=== PATIENT | female | born 1940 | race Caucasian/White ===

== ENCOUNTER 2018-03-02 08:21 | Inpatient (IN) | payer MEDICARE ==
[~2018-03-02] VITALS: Ht 160 cm; Wt 75.0 kg
[2018-03-07] MEDS ORDERED: LISINOPRIL-HCT1 EACH PO (15:22)
[2018-03-07] MEDS ORDERED: MAGNESIUM250 M1 PO (15:23)
[2018-03-07] MEDS ORDERED: PRILOSEC OTC20 MG PO (15:23)
[2018-03-07] MEDS ORDERED: VISION VITAMIN1 EACH PO (15:24)
[2018-03-07] MEDS ORDERED: VIACTIV SOFT C1 EACH PO (15:24)
--- NOTE | 2018-03-16 13:03 | NUR ---
PATIENT ARRIVES TO ROOM 129 FROM PACU AT 1230 ON STRETCHER. PT IS AWAKE, ALERT, AND ORIENTED AT THIS TIME. PATIENT MOVED OVER TO CCU BED WITH 4 PERSON ASSIST. PT HAS ERNST CATHETER IN PLACE DRAINING YELLOW URINE WITH A HIGHLIGHTED TINT TO IT DUE TO DYE USED DURING PROCEDURE. PT HAD A COLPACLOESIS THIS AM WITH DR. BABB. PT'S BLOOD PRESSURE UPON ARRIVAL TO CCU ARE IN THE 80/30s. PATIENT ARRIVES WITH PHENYLEPHRINE INFUSING AT 60 MCG/MIN. ORDER REC'D FROM DR. LIND TO START LEVOPHED AT 6 MCG/MIN WHICH WAS STARTED AT 1240. AT 1247, BP NOTED TO BE 129/57 (75) AND PHENYLEPHRIN TITRATED DOWN TO 50 MCG/MIN. PHENYLEPHRINE AGAIN TITRATED DOWN TO 30 MCG/MIN AT 1253. . HEART RATE IS IN A SINUS RHYTHM 80-90s WITH SOME PVCs AND PACs NOTED AT TIMES. PT HAS SOME VAGINAL BLEEDING NOTED AND A PERIPAD PLACED. PICC NURSE IN ROOM AT THIS TIME AND EVALUATING PATIENT FOR POTENTIAL PICC LINE PLACEMENT. PT REMAINS AWAKE, ALERT AND CONVERSIVE. CONTINUE TO MONITOR.
--- NOTE | 2018-03-16 13:57 | NUR ---
LEVOPHED TURNED UP TO 15 MCG/MIN AT THIS TIME. LAST BP 115/41 (58). ERNST UROMETER CHANGED OUT. URINE GOAL IS 40 ML/HR. PT AWAKE, CONVERSIVE AND VERY SWEET.
--- NOTE | 2018-03-16 14:16 | NUR ---
PHENYLEPHRINE TURNED OFF AT 1407. BP AT 1405 WAS 138/67 (80) AND BP AT 1415 WAS 127/67 (80). WILL START TO TITRATE DOWN THE LEVOPHED AT PATIENT TOLERATES. PT ABLE TO TAKE A PILL WITHOUT DIFFICULTY WITH SIP OF WATER. CALL LIGHT WITHIN REACH.
--- NOTE | 2018-03-16 14:48 | NUR ---
DR. LIND UPDATED ON PT'S BLOOD PRESSURES AND URINE OUTPUT. ORDER REC'D TO GIVE 500 ML LR BOLUS AT THIS TIME. LR BOLUS STARTED IN RIGHT AC IV SITE. ZERO URINE OUTPUT NOTED IN NEW ERNST DRAINAGE BAG. CONTINUE TO MONITOR.
--- NOTE | 2018-03-16 15:03 | NUR ---
LEVOPHED TURNED DOWN TO 12 MCG/MIN AT THIS TIME. PT HAD ZERO URINE OUTPUT FOR 1500. DR. LIND AWARE. PT STATES SHE FEELS LIKE OF HOT AND HER HANDS AND FOREARMS ARE NOTED TO BE COOL AND CLAMMY. CONTINUE TO MONITOR. ORAL TEMP 97.6 CURRENTLY.
--- NOTE | 2018-03-16 15:37 | NUR ---
LEVOPHED TURNED DOWN TO 10 MCG/MIN AT THIS TIME. LAST BP 122/51 (68). URINE OUTPUT REMAINS ZERO AT THIS TIME. PT DENIES WANTING ANY CLEAR LIQUIDS AT THIS TIME.
--- NOTE | 2018-03-16 15:57 | NUR ---
03/16/18 1557 [place],Anna 0940 PT ARRIVED SITTING IN HIGH FOWLERS WITH 8L VIA MASK IN PLACE. RESP EVEN AND UNLABORED. SMALL AMOUNT OF AUDIBLE CRACKLES NOTED. RN ENCOURAGED PT TO DEEP BREATH AND COUGH. PT HAS GLOSSY EYES AND IS UNABLE TO FOLLOW COMMANDS. O2 SAT MONITOR READING 81% WITH NOT A GOOD WAVE FORM. RN AJUSTING O2 FINGER MONITOR FOR BETTER READING. PT CAP REFILL LESS THEN 2 SECONDS AND WARM AND PINK EXTREMITIES. PT O2 SAT SLOWLY INCREASING. 0942 NASEL AIRWAY REMOVED, PT REACHING UP TO NOSE TO PULL AIRWAY AND SCRATCH NOSE, PT AROUSING. O2 PLACED ON EAR, 96% ON 8L VIA MASK. 0949 BREATHING TREATMENT AT 10L STARTED PER MARKETING SERVICES COORDINATOR. MD ORDERED BLOOS CULTURES AND ABX AND LATIC ACID. 0950 X-RAY AT BEDSIDE PER MARKETING SERVICES COORDINATOR. RN AUSCULTATED LUNG SOUNDS, CRACKLES IN LEFT LOWER BASE NOTED. [id number] BP ON MONITOR SHOWS 42/23 MAP 27. RN AJUSTED BP CUFF TO RETAKE BP. PT MORE AWAKE AND ENCOURAGED TO COUGH AND PT HAD WEAK COUGH. PT DENIES SOB AND DIZZINESS. BP RANGING FROM 46/19 TO 64/45. MANUAL BP TAKEN BY RN, 78/50. MD AT BEDSIDE. 1003 MARKETING SERVICES COORDINATOR AT BEDSIDE. EPHEDRINE 25 MG IV PUSH GIVEN BY MARKETING SERVICES COORDINATOR TO SUPPORT BP. 1006 BP INCREASED TO 92/61 MAP 68. PT AWAKE DENIES PAIN AND NAUSEA. 1020 BP TRENDING DOWN, MARKETING SERVICES COORDINATOR RETURNED TO ROOM AND STARTED PHENYLEPHRINE DRIP. TITRATE MAP BETWEEN 55-65 PER MARKETING SERVICES COORDINATOR ORDERS. PT ALERT AND ORIENTED X3. 1025 BP INCREASED RANGING 120-150 SBP MAP 75-99, PHENYLEPHRINE DECREASED. 1037 O2 DECREASED TO 8L VIA OXYMASK, O2 SAT 97%. PT CONTINUED TO ENCOURAGED TO DEEP BREATH AND COUGH. 1040 SECOND RN AT BEDSIDE TO START SECOND IV. 1047 LAB AT BEDSIDE. 1048 O2 DECREASED TO 6L, O2 SAT 99%. PT EDUCATED ABOUT DEEP BREATHING AND COUGHING, AND REASON FOR OXYMASK. 1055 PHENYLEPHRINE GOING AT 25 MCG/MIN WITH LR. 1100 PT CONTINUES TO DENIES SOB AND DIZZINESS. PT ALERT AND ORIENTED X3. SKIN PINK WITH CAP REFILL LESS THEN 2 SECONDS. 1104 PHENYLEPHRINE TITRATED UP TO 45 MCG/MIN DUE TO DECREASING BP. 1112 BP INCREASED TO 95/44 MAP 56. RN CONTINUES TO MONITOR BP CLOSELY WITH BP RUNNING EVERY 3 MINS AND PHENYLEPHRINE TITRATED ACCORDINGLY BETWEEN 25-45 MCG/MIN. 1120 O2 REMOVED. O2 SAT 100%. ACCORDING TO MD PT CAN NOT TOLERATE HOB LAYING FLAT DUE TO REFLUX. AT BEDSIDE. 1130 NC PLACED ON PT AT 2L DUE TO DECREASING O2 SAT, 90%. O2 INCREASED TO 93%. 1140 MD AND MARKETING SERVICES COORDINATOR AT BEDSIDE, MD ORDERED PT BE TRANSFERED TO CCU AND CONSULT TO MD LIND PLACED. 1200 MD LIND AT BEDSIDE TO ASSESS PT. ORDERS GIVEN TO BE FOLLOW IN CCU. JUAN RAMON BP 70/50 PER DIOGO, PHENYLEPHRINE INCREASED TO 60 MCG/MIN PER . NEW ORDER TO START NOREPI IN CCU. 1220 PT READY FOR TRANSFER AND CCU READY TO RECEIVE PT. IV FLUIDS INCREASED TO AND HOB DECREASED TO 20 DEGREES WITH PT REPORTING NO REFLUX AT THIS TIME. PT DENIES NAUSEA AND PAIN. PT REPORTS FEELING BACK TO BASELINE WITH NO DIZZINESS OR SOB. 1230 REPORT TO CCU RN. SEE SCAN IN VITAL SIGNS FOR ALL RECORDED VITAL SIGNS.
--- NOTE | 2018-03-16 16:27 | NUR ---
DR. LIND IN UNIT TO CHECK ON PATIENT AGAIN. UPDATED ON MOST RECENT BLOOD PRESSURES AND TITRATION LEVEL OF LEVOPHED. LEVOPHED WAS INFUSING AT 10 MCG/MIN FOR AROUND A HALF HOUR, BUT 1600 BP 99/37. LEVOPHED WAS THEN TURNED UP TO 12 MCG/MIN AT 1615, AND AGAIN TURNED UP TO 14 MCG/MIN AT 1617. PT'S SP02 IS 95% ON 2 L AND THIS WAS TURNED DOWN TO 1 L AT THIS TIME. PT DENIES ANY SHORTNESS OF BREATH. PT DOES NOTE AT THIS TIME TO DR. LIND AND RN THAT SHE HAS BEEN HAVING NAUSEA WITH VOMITING SINCE WEDNESDAY, WITH REFLUX SYMPTOMS THAT EVEN OCCUR WHEN SHE IS SLEEPING AND SHE HAS NOTED HERSELF TO BE AWOKEN BY COUGHING ON THEM. PATIENT ALSO NOTES THAT SHE HAS HAD A LARGER, DISTENDED FEELING FIRM ABDOMEN THAT HAS BEEN PERSISTENT SINCE AROUND NOV/DEC OF THIS YEAR. ABDOMINAL XRAY TO BE OBTAINED.
--- NOTE | 2018-03-16 17:08 | NUR ---
ABD XRAY DONE. LABS DRAWN FROM RIGHT AC SITE WHICH DRAWS BLOOD BACK WELL. DR. BABB BACK IN ROOM TO CHECK UP ON PATIENT AT THIS TIME. PATIENT MADE 15 ML OF URINE FROM [id number].
--- NOTE | 2018-03-16 18:37 | NUR ---
PATIENT ADMITTED FROM PACU AROUND 1230 AFTER COLPACLEISIS TODAY. PT ARRIVED TO CCU ON PHENYLEPHRINE WHICH IS NOW OFF. PT NOW ON LEVOPHED WITH TITRATION TO KEEP MAP >65 ML/HR, CURRENLTY INFUSING AT 14 MCG/MIN. PT ALERT, ORIENTED AND TOLERATING LOW BPs WELL. MONITOR U/O - GOAL OF 40 ML/HR. PT HAS BEEN AVERAGING 15 ML/HR. IV ABX INCLUDE AZITHROMYCIN AND UNASYN. PT NOTED TO ALSO HAVE LEFT SIDED PNEUMONIA, LIKELY DUE TO GERD REFLUX AND VOMITING SINCE WEDNESDAY. PICC LINE IN LEFT UPPER ARM. IVF AT 125 ML/HR.
--- NOTE | 2018-03-16 20:00 | NUR ---
RECEIVED REPORT AT 1915. PT IS IN BED. VASOPRESSOR DRIP AT 14MCG/MIN. BP 125/55 (69), HR 70-80'S. THE BLADDER SCANNER FROM ER WAS OBTAINED AND SHOWED A URINE VOLUME OF 938ML. PT HAS BEEN RE-POSITIONED TO LEFT, RIGHT AND UP WITH NO INCREASE IN URINE OUTPUT. MD LIND WAS CALLED AND A VOICEMAIL WAS LEFT. LOBES ARE CLEAR BUT DIMINISHED, ABD SOUNDS ARE HYPOACTIVE AND DISTANT, ABD IS FIRM TO TOUCH BUT NOT TENDER. PT DENIES URGENCY TO URINATE. PT DENIES PAIN OVERALL. WILL WAIT ON FURTHER INSTRUCTIONS FROM MD LIND.
--- NOTE | 2018-03-16 20:47 | NUR ---
MD LIND WANTED FOR US TO CALL MD BABB. MD BABB SAID TO IRRIGATE ERNST WITH 50-100ML STERIL WATER. I WILL CALL BACK IF THERE IS NO INCREASE IN OUTPUT.
--- NOTE | 2018-03-16 21:00 | NUR ---
VASOPRESSOR REDUCED TO 12MCG/MIN. PT IS TOLERATING WELL.
--- NOTE | 2018-03-16 21:04 | NUR ---
90ML OF STERIL SALINE WAS IRRIGATED THROUGH THE ERNST. 148ML CAME OUT. ACTUAL URINE OUTPUT THEREFORE WAS 58ML FOR 1 HR. WILL ZACK BABB AGAIN.
--- NOTE | 2018-03-16 21:10 | NUR ---
RECEIVED ORDER FROM MD BABB FOR A PELVIC US. US TEAM HAS BEEN CALLED.
--- NOTE | 2018-03-16 22:00 | NUR ---
MD BABB IS COMMING IN TO ASSESS PT. ERNST OUTPUT FOR 2100-200 IS 17ML. IV [id number] IS TURNED OFF AT THIS TIME.
--- NOTE | 2018-03-17 | NUR ---
PT HAD AN ABD/PELVIC CT W/O. AT THIS TIME PT IS RECEIVING THE SAME CT BUT WITH CONTRAST VIA IV. URINE OUTPUT HAS REMAINED VERY LOW. ABD IS STILL DISTENDED AND FIRM TO TOUCH. ABD SOUNDS ARE STILL VERY DISTANT. LOWER LOBES HAVE CRACKLES AT THIS TIME. PT IS ON 2L O2 NC. VASOPRESSOR IS STILL AT 12MCG/MIN. RADIAL AND PEDIS PULSES ARE +2, HANDS AND FEET ARE WARM TO TOUCH. V/S OVERALL ARE WDL. PT DENIES PAIN.
--- NOTE | 2018-03-17 02:00 | NUR ---
PT IS RESTING AT THIS TIME. VASOPRESSOR AT 15MCG/MIN, BP'S AND MAP ARE HOLDING. NO CHANGES AT THIS TIME.
--- NOTE | 2018-03-17 02:40 | NUR ---
AT THIS TIME MD BABB WANTS MD LIND TO TAKE OVER CARE OF THIS PT AGAIN IN REGARDS TO HER V/S AND URINE OUTPUT. MD LIND WAS CALLED. RECEIVED ORDER TO LOWER IV FLUIDS TO 75ML/HR, AND TO WATCH URINE OUTPUT FOR 3HRS AND CALL HIM WITH AN UPDATE. LEVOPHET AT 15MCG/MIN.
--- NOTE | 2018-03-17 04:00 | NUR ---
UPPER LOBES ARE CLEAR, LOWER LOBES HAVE FINE CRACKLES. ABD IS STILL DISTENDED AND IS FIRM. PT STILL DENIES PAIN. BRACHIAL AND PEDIS PULSES ARE +2, CAP REFILL IS <3SEC, FINGERS AND TOES ARE WARM TO TOUCH. LEVOPHED IS STILL AT 15MCG/MIN. V/S OVERALL ARE WDL. NO NEW CONCERNS AT THIS TIME.
--- NOTE | 2018-03-17 06:00 | NUR ---
AT START OF SHIFT PT HAD ISSUES WITH URINE OUTPUT. ERNST WAS IN PLACE BUT BLADDER SCANNER SHOWED 938ML IN BLADDER. ERNST WAS CHANGED X2 BY RN'S AND X1 BY MD BABB. PELVIC US WAS DONE, ABD/PELVIC CT'S WITH AND WITHOUT CONTRAST WAS DONE. CT SHOWED A COMPRESSED BLADDER AND ASCITES. ABD OF PT HAS BEEN AND STILL IS DISTENDED AND FIRM TO TOUCH. ABD SOUND ARE AND HAVE BEEN HYPOACTIVE AND DISTANT IS SOUND. PT DENIES PAIN AND FLATUS ALL SHIFT. URINE OUTPUT HAS BEEN POOR UNTIL EARLIER THIS MORNING. MD BABB AND DIOGO ARE AWARE. LOWER LOBES HAVE CRACKLES PRESENT, UPPER LOBES ARE CLEAR. PT IS STILL ON LEVOPHET AT 17MCG/MIN AT THIS TIME. RADIAL AND PEDIS PULSES ARE +2, HANDS AND FEET ARE AT THIS TIME LUKEWARM TO TOUCH. PICC LINE IS INTACT. V/S AT THIS TIME ARE WDL.
--- NOTE | 2018-03-17 08:08 | NUR ---
PT IS RESTING IN BED SAFELY WITH CALL LIGHT IN REACH. PT ASKED TO ORDER BREAKFAST WILL CALL DOWN HER ORDER TO THE KITCHEN. 0800 VITALS WERE TAKEN AND CHARTED.
--- NOTE | 2018-03-17 08:30 | NUR ---
DR. BABB IN ROOM TO EVALUATE PATIENT. PT NOW EATING BREAKFAST.
--- NOTE | 2018-03-17 08:36 | NUR ---
PATIENT AWAKE, SITTING UP IN BED EATING BREAKFAST. PT'S MOST RECENT BP 98/54 (65). LEVOPHED CONTINUES AT 17 MCG/MIN AT THIS TIME. IVF AT 75 ML/HR. PT TO RECEIVE IV ANTIBIOTICS THIS AM.
--- NOTE | 2018-03-17 09:01 | NUR ---
LEVOPHED TURNED DOWN TO 15 MCG/MIN AT THIS TIME. DR. LIND IN ROOM EVALUATING PATIENT. CONTINUE TO MONITOR.
--- NOTE | 2018-03-17 09:02 | NUR ---
IVF TURNED DOWN TO [address] AT THIS TIME PER [address] LIND'S ORDER. PATIENT TO GET UP TO CHAIR TODAY AND MOVE AROUND MORE. URINE OUTPUT THIS HOUR WAS 60 ML/HR. CONTINUE TO MONITOR CLOSELY.
--- NOTE | 2018-03-17 09:50 | NUR ---
TITRATED LEVOPHED DRIP TO 16 MCG PER LOW MAP OF 57. PT SITTING UP IN BED AWAKE AND ALERT, DENIES ANY NEEDS AT THIS TIME.
--- NOTE | 2018-03-17 10:20 | NUR ---
TURNED PT 02 UP TO 3L DUE TO DESAT ON 2L DOWN TO MID 80% TITRATED LEVOPHED DRIP UP TO 17 MCG/MIN DUE TO LOW MAP OF 55, BP IS 102/38
--- NOTE | 2018-03-17 10:59 | NUR ---
PT WAS GIVEN A COMPLETE BED BATH, CATH/BRYAN CARE, ORAL CARE, LINENS CHANGED, AND HAIR BRUSHED. PT WAS TRANSFERED VIA TWO PEOPLE TO BEDSIDE CHAIR AND IS NOW SITTING UP SAFELY WITH FEET ELEVATED AND CALL LIGHT IN REACH. PT DID NOT NEED ANYTHING ELSE AT THE MOMENT
--- NOTE | 2018-03-17 11:05 | NUR ---
LEVOPHED REMAINS INFUSING AT 17 MCG/MIN AT THIS TIME. PT SITTING IN CHAIR, VISITING WITH HER . LAST BP 112/52 (66) AND HR IN THE 95-105 RANGE. PT NOW ON 3 L OXYGEN.
--- NOTE | 2018-03-17 11:59 | NUR ---
PATIENT'S LUNCH ORDERED AND ALSO A CAREGIVER TRAY FOR HER . PT REMAINS SITTING IN CHAIR AND TOLERATING THIS WELL. PT USING IS. LEVOPHED REMAINS AT 17 MCG/MIN AT THIS TIME. CONTINUE TO MONITOR. ASSESSMENT COMPLETE AT THIS TIME.
--- NOTE | 2018-03-17 14:12 | NUR ---
PT SITTING IN CHAIR, AT HER SIDE. BOTH HAD JUST FINISHED LUNCH. PT IS ALERT AND ORIENTED, VERY PLEASANT. RATHER OUTSPOKEN AND OPINIONATED ABOUT MED. PROFESSION. PT THANKED ME FOR COMING IN, REQUESTED PRAYER. WILL CONTINUE TO FOLLOW NEEDED
--- NOTE | 2018-03-17 14:27 | NUR ---
LEVOPHED TURNED DOWN TO 14 MCG/MIN AT 1400.
[2018-03-17] MEDS ORDERED: MURO-12815 M1 OU (15:41)
[2018-03-17] MEDS ORDERED: MULTIVITAMINS1 EAC8 PO (15:42)
--- NOTE | 2018-03-17 16:16 | NUR ---
LEVOPHED TURNED DOWN TO 10 MCG/MIN AT THIS TIME. LAST BP 115/54(68). PATIENT UP TO AMBULATE AND ABLE TO WALK IN CCU H ALLWAY DOWN AND BACK TO ROOM. PT TOLERATED FAIR, BUT DESATURATES WITHOUT OXYGEN DOWN TO 79%. PT BACK ON 4 L NC AT THIS TIME AND NOW SP02 IS 97%. WILL CONTINUE TO WORK ON USING IS.
--- NOTE | 2018-03-17 17:47 | NUR ---
DR. BABB IN TO SEE PATIENT AGAIN AT THIS TIME. PT REMAINS IN BED AND WATCHING TV. HELPED PATIENT TO ORDER DINNER AT THIS TIME, HOWEVER SHE STATES SHE IS NOT VERY HUNGRY. CA 19-9 ANTIGEN AND CA 125 LABS STILL PENDING AT THIS TIME AND WILL BE CALLED TO DR. BABB WHEN RECEIVED.
--- NOTE | 2018-03-17 18:08 | NUR ---
OXYGEN TURNED DOWN TO 2 L AT THIS TIME SP02 IS NOTED TO BE 99-100 ON 3L OF O2. PT RESTING IN BED AT THIS TIME AND WAITIN FOR HER DINNER. CONTINUE TO MONITOR. URINE OUTPUT FOR THE LAST 2 HOURS WAS 70 ML.
--- NOTE | 2018-03-17 18:46 | NUR ---
DR. LIND UPDATED ON MOST RECENT URINE OUTPUTS. ORDER REC'D TO MAINTAIN BLOOD PRESSURE MAP >65 AND ALSO TO MAINTAIN URINE OUTPUT OF 40 ML/HR. LEVOPHED TURNED UP TO 12 MCG/MIN AT THIS TIME. PT SITTING UP EATING DINNER. DR. BABB UPDATED ON CA 19-9 AND CA 125 LAB VALUES WELL.
--- NOTE | 2018-03-17 19:20 | NUR ---
SHIFT REPORT RECEIVED FROM LUIS ANTONIO BUSH. PT CURRENTLY ON 2L O2 VIA NC. LEVOPHED INFUSING AT 12MCG/MIN.
--- NOTE | 2018-03-17 20:41 | NUR ---
ASSESSMENT COMPLETED. LEVOPHED TITRATED TO 13MCG/MIN FOR MAP:59. PT REPORTS 9/10 PAIN IN ABDOMEN, 25MCG IV FENTANYL GIVEN. ALERT/ORIENTED. LUNGS CLEAR IN UPPER, CRACKLES NOTED IN BASES, 2L O2 VIA NC IN PLACE. HR REGULAR. BOWEL TONES HYPOACTIVE, ABDOMEN TENDER, FIRM, MODERATELY DISTENDED. ERNST PATENT, 23ML EMPTIED AT 2030, WILL CONTINUE TO MONITOR CLOSELY. SKIN APPEARS GROSSLY INTACT. PT PROVIDED WITH HEAT PACK FOR HER NECK PER REQUEST. PT DENIES FURTHER NEEDS AT THIS TIME.
--- NOTE | 2018-03-17 20:59 | NUR ---
TITRATED OXYGEN TO 3L VIA NC FOR SATS 88-90%. BOOSTED PT UP IN BED. EMPTIED 23ML FROM ERNST SINCE 2029, WILL CONTINUE TO MONITOR ON THE HOUR.
--- NOTE | 2018-03-17 21:24 | NUR ---
UNASYN INFUSION COMPLETED, RIGHT WRIST IV SALINE LOCKED AT THIS TIME. LEVOPHED CONTINUES AT 13MCG/MIN. PT DENIES NEEDS, WILL CONTINUE TO MONITOR.
--- NOTE | 2018-03-17 22:00 | NUR ---
PT CONTINUES TO REPORT 9/10 ABDOMINAL PAIN, 25MCG IV FENTANYL ADMINISTERED. PT ALSO REQUESTS SLEEP AID, SONATA ADMINISTERED.
--- NOTE | 2018-03-17 22:11 | NUR ---
DR. LIND NOTIFIED OF PT'S LOW UO, ORDERS RECEIVED TO BOLUS 250ML NS OVER 1 HR AND SEE IF UO RESPONDS AND IF NEEDED INCREASE IVF TO 100ML/HR. BOLUS STARTED. PT'S LAST BP: 117/73 (83), TITRATED LEVOPHED TO 12MCG/MIN, WILL CONTINUE TO MONITOR CLOSELY.
--- NOTE | 2018-03-17 22:34 | NUR ---
TITRATED LEVOPHED TO 11MCG/MIN FOR MAP:74.
--- NOTE | 2018-03-17 22:47 | NUR ---
TITRATED OXYGENT TO 4L O2 VIA NC FOR SPO2:87%, SATS INCREASED TO 90% AFTER A COUPLE DEEP BREATHS. PT BOOSTED UP IN BED, DENIES FURTHER REQUESTS.
--- NOTE | 2018-03-17 23:00 | NUR ---
LEVOPHED TITRATED TO 10MCG/MIN FOR MAP:77. UO WAS 50ML THIS HOUR. PT RESPONDED WELL TO FLUIDS, INCREASED IVF RATE TO 100ML/HR. PT CONTINUES TO RATE ABDOMINAL PAIN 9/10, PRN TYLENOL AND 25MCG FENTANYL GIVEN AT THIS TIME. WILL CONTINUE TO MONITOR. CLOSELY.
--- NOTE | 2018-03-17 23:00 | NUR ---
LEVOPHED TITRATED TO 10MCG/MIN FOR MAP:77. UO WAS 50ML THIS HOUR. PT RESPONDED WELL TO FLUIDS, INCREASED IVF RATE TO 100ML/HR. PT CONTINUES TO RATE ABDOMINAL PAIN 9/10, PRN TYLENOL AND 25MCG FENTANYL GIVEN AT THIS TIME. WILL CONTINUE TO MONITOR CLOSELY.
--- NOTE | 2018-03-18 00:10 | NUR ---
LEVOPHED TITRATED TO 8MCG/MIN FOR MAP:80. UO THIS HOUR WAS ONLY 20, IVF CONTINUE AT 100ML/HR, WILL CONTINUE TO MONITOR CLOSELY. PT SLEEPING, DOES NOT APPEAR TO BE IN ANY DISTRESS. RR:23, 4L O2 REMAINS IN PLACE. WILL ALLOW FOR REST AND CONTINUE TO MONITOR.
--- NOTE | 2018-03-18 00:44 | NUR ---
TITRATED LEVOPHED TO 7MCG/MIN FOR MAP OF 72.
--- NOTE | 2018-03-18 01:00 | NUR ---
LEVOPHED TITRATED TO 8MCG/MIN FOR MAP:61. URINE OUTPUT 25ML THIS HOUR.
--- NOTE | 2018-03-18 01:20 | NUR ---
CALLED AND SPOKE TO DR. LIND REGARDING PT'S LOW URINE OUTPUT. RECEIVED ORDERS TO DISCONTINUE CURRENT IVF AND START NORMAL SALINE @125ML/HR CONTINUOUS WELL A ONE TIME 500ML NS BOLUS OVER ONE HOUR. PT CONTINUES TO REPORT 9/10 ABDOMINAL PAIN, 25MCG IV FENTANYL GIVEN. PT REPORTS THAT SHE HAS PASSED FLATUS. NO REQUESTS AT THIS TIME, WILL CONTINUE TO MONITOR.
--- NOTE | 2018-03-18 02:03 | NUR ---
TITRATED LEVOPHED TO 7MCG/MIN FOR MAP OF 72. URINE OUTPUT WAS 15ML THIS HOUR. WILL CONTINUE TO CLOSELY MONITOR.
--- NOTE | 2018-03-18 03:06 | NUR ---
LEVOPHED CONTINUES AT 7MCG/MIN, LAST MAP:67. UO THIS HOUR WAS 33ML.
--- NOTE | 2018-03-18 04:00 | NUR ---
LEVOPHED TITRATED TO 6MCG/MIN FOR MAP OF 82. URINE OUTPUT WAS 25ML THIS HOUR. PT REPORTS 10/10 ABDOMINAL PAIN, 25MCG IV FENTANYL GIVEN. ASSESSMENT COMPLETED. LUNGS SOUND CLEAR IN UPPER LOBES AND CRACKLES NOTED IN BASES, 4L O2 VIA NC REMAINS IN PLACE. NO OTHER CHANGES FROM PREVIOUS ASSESSMENTS. PT DENIES NEEDS, WILL CONTINUE TO MONITOR.
--- NOTE | 2018-03-18 05:10 | NUR ---
LEVOPHED TITRATED TO 5MCG/MIN FOR MAP OF 70. URINE OUTPUT 33ML THIS HOUR. PT APPEARS TO BE SLEEPING, NO APPARENT DISTRESS. RR:25, SPO2:96% ON 4L.
--- NOTE | 2018-03-18 06:00 | NUR ---
LEVOPHED TITRATED TO 4MCG/HR FOR MAP OF 78. URINE OUTPUT 25ML THIS HOUR.
--- NOTE | 2018-03-18 07:03 | NUR ---
LEVOPHED TITRATED TO 5MCG/MIN FOR MAP OF 61. URINE OUTPUT WAS 33ML THIS HOUR. CALLED AND UPDATED DR. LIND, NO NEW ORDERS RECEIVED AT THIS TIME.
--- NOTE | 2018-03-18 07:30 | NUR ---
BEDSIDE REPORT RECIEVED. PATIENT IS RESTFUL AT THIS TIME. IVF PATENT, ERNST CATH PATENT.
--- NOTE | 2018-03-18 08:00 | NUR ---
ASSESSMENT DONE. C/O ABD PAIN AND SHOULDER PAIN. HAVING TROUBLE GETTING FULL BREATH. RESP RATE >30. TALKED WITH PATIENT ABOUT PALC OF ARE FOR DAY.
--- NOTE | 2018-03-18 08:15 | NUR ---
FENTANYL 25 MCG IV GIVEN FOR PAIN.
--- NOTE | 2018-03-18 10:00 | NUR ---
DR. LIND HERE TO SEE PATIENT. IVF DECREASED TO 65 ML/HR. LEVOPHED GTT REMAINS AT 4MCG/MIN.
--- NOTE | 2018-03-18 10:22 | NUR ---
FENTANYL 25 MCG IV GIVEN FOR PAIN. IS AT BEDSIDE.
--- NOTE | 2018-03-18 12:00 | NUR ---
UP TO CHAIR WITH ASSIST.
--- NOTE | 2018-03-18 14:00 | NUR ---
DR. LOWERY HERE TO DO PARACENTESIS.
--- NOTE | 2018-03-18 14:45 | NUR ---
TOLERATED PARACENTESIS WELL. TOTAL OF 4000 ML OF PERINEAL FLUID. SPEC SENT TO LAB FOR CYTOLOGY ORDERED.
--- NOTE | 2018-03-18 15:00 | NUR ---
PHOTOGRAPH INSPECTOR HERE TO DO ECHO AT BEDSIDE.
--- NOTE | 2018-03-18 15:35 | NUR ---
ECHO COMPLETE. PATIENT DENEIS NEED FOR PAIN MEDICATION.
--- NOTE | 2018-03-18 16:00 | NUR ---
ASSESSMENT DONE. CONTINUES TO HAVE CRACKLES BILAT. L>R. UP TO BR TO EXPELL SMALL STOOL, THEN TO CHAIR. ADLS COMPLETE. REFUSING DINNER.
--- NOTE | 2018-03-18 17:00 | NUR ---
CONTINUE TO SIT UP IN CHAIR. STATES SHE FEEL ALITTLE BETTER NOW.
--- NOTE | 2018-03-18 17:31 | NUR ---
AMBULATED IN HALLWAY, FROM ROOM 130 TO 128 AND BACK. REMAINS ON LEVOPHED GTT AT 3 MCG/MIN. AMBULATING WITH WALKER AND 4 LITERS O2 PER NC. UPON RETURN TO ROOM IS DYSPNIC. O2 SAT 88. RESP RATE-40. STATES SHE IS VERY TIRED. AFTER APPROX 3 MIN SITTING AT BEDSIDE, SAT TO 94.
--- NOTE | 2018-03-18 18:00 | NUR ---
LEVOPHED GTT TO OFF. BP-124/55. WILL MONITOR BP Q 15 MIN FOR NOW. C/O PAIN INBETWEEN SHOULDERS BLADES, LIDOCAINE PATCH APPLIED.
--- NOTE | 2018-03-18 18:36 | NUR ---
FENTANYL 25 MCG IV GIVEN FOR PAIN.
--- NOTE | 2018-03-18 19:02 | CONS ---
[facility] [address], [place] [address] Signed DATE OF CONSULTATION: 03/18/2018 CONSULTING PHYSICIAN: Alisa Lowery MD. REQUESTING PHYSICIAN: Raffaele Krishna MD PROBLEM: Enigmatic ascites, need for paracentesis. HISTORY OF PRESENT ILLNESS: This 77-year-old white woman was admitted to the intensive care unit postoperatively after operation performed on March 16, 2018. She had undergone a colpocleisis and cystoscopy by Dr. Krishna with assistance of Dr. Fletcher and Dr. Ziegler. A spinal anesthetic was used. Postoperatively, she was noted to have hypotension and oliguria. An ultrasound performed showed a fair amount of fluid within the abdomen, which initially was thought to be a distended bladder, but subsequently considered actually to be intraperitoneal ascites. The patient required pressor support for blood pressure support and although she is improved in that regard, remains with rather significant ascites at this time, which would be considered new. Consultation was undertaken with Dr. Vargas for medical comanagement and review of the patient's course during operation showed hypotension. During the course of operation, administration of approximately 3-4 L of crystalloid solution as well as ephedrine. A postprocedure chest x-ray showed findings consistent with left lower lobe pneumonia. The patient had a cough leading up to the time of operation though was [id number] carmona without associated production of sputum. The patient has been weaned from her norepinephrine drip largely now only at 3 mcg. She has been treated with broad-spectrum antibiotics. Her white count today is 24.3 with hematocrit of 32.6, and platelet count of 367,000. Her band forms are 10%. Chem profile shows a potassium of 3.7. Sodium 133, creatinine 0.53. Magnesium is 1.7. Albumin is 2.5. The CA-19-9 and CA-125 is pending. The patient underwent CT scan to assess that there was no evidence of bladder injury or urinary abnormality otherwise. The CT scan did not demonstrate ureteral injury, bladder injury or renal injury, though to my knowledge, no retrograde cystogram has been undertaken. The renal retroperitoneal ultrasound was performed on 03/16/2018, showing Electronically Signed By: ALISA LOWERY MD 03/18/18 1902 PATIENT NAME: SAQIB BHARDWAJ CONSULTATION DATE OF : 40 REPORT #: [id number] PHYSICIAN: ALISA LOWERY MD PCP: LUIZA ORTEGA Radha-Abhay REPORT IS CONFIDENTIAL AND NOT TO BE RELEASED WITHOUT AUTHORIZATION [facility] [address], [place] [address] Signed ascites and collapse of bladder around the Madison catheter bulb. There is no evidence of hydronephrosis on ultrasound or on CT scan. There has been concern she may have underlying carcinomatosis, specifically a primary peritoneal carcinoma or other similar such abnormality accounting for the ascites as there was apparent omental caking on the CT scan in addition to the massive ascites that has been noted. PHYSICAL EXAMINATION: GENERAL: This is a pleasant white woman who does not look systemically toxic at this time. She is accompanied by her . HEENT: Trachea is midline. She has no tachypnea. CHEST: Shows normal respiratory excursion at this time. HEART: Regular. ABDOMEN: Does show considerable ascites. I detect no sign of hernia at the umbilicus or obvious scar, though she is said to have had hysterectomy in the past. EXTREMITIES: Do not show edema. LABORATORY DATA: Labs studies were reviewed showing a hematocrit of 32.6, platelets of 367,000. I see no coag studies particularly. Electrolytes are normal as previously described. Creatinine 0.53. Urinalysis was normal on March 16. ASSESSMENT: There is a particular situation for ascites to develop so abruptly following operation. There has not thought to be any bladder rupture or other similar issue. However, the peritoneal fluid has been considered appropriate to collect for symptom control, but also for assessment particularly for malignancy. The risks of bleeding, infection, and so forth related to paracentesis for diagnosis and therapeutic intent have been reviewed with the patient and her . They understand and agree. Understanding the risks of bleeding, infection, bowel injury, and other unforeseen complications. Understand this, they wished to proceed. PLAN: We will make plans to do paracentesis at this time for diagnosis for treatment intention. MD KRZYSZTOF Vera/MARICRUZ /[id number] Electronically Signed By: ALISA LOWERY MD 03/18/18 1902 PATIENT NAME: SAQIB BHARDWAJ CONSULTATION DATE OF : 40 REPORT #: [id number] PHYSICIAN: ALISA LOWERY MD PCP: LUIZA ORTEGA REPORT IS CONFIDENTIAL AND NOT TO BE RELEASED WITHOUT AUTHORIZATION [address] [address] Signed cc: MD Waldo Chen MD Copies: RAFFAELE KRISHNA MD, LOHITH VEERAPPA MD ~ Electronically Signed By: ALISA LOWERY MD 03/18/18 1902 PATIENT NAME: SAQIB BHARDWAJ CONSULTATION DATE OF : 40 REPORT #: [id number] PHYSICIAN: ALISA LOWERY MD PCP: LUIZA ORTEGA REPORT IS CONFIDENTIAL AND NOT TO BE RELEASED WITHOUT AUTHORIZATION
--- NOTE | 2018-03-18 19:02 | NUR ---
MAP REMAINS >70 LEVOPHED REMAINS OFF.
--- NOTE | 2018-03-18 19:15 | NUR ---
SHIFT REPORT RECEIVED FROM LUIS ANTONIO SHANNON. PT CURRENTLY RESTING IN BED WITH 4L O2 VIA NC IN PLACE. SCD'S PLACED ON PT. SUJATA PATENT. IVF INFUSING WNL INTO PICC. PT DENIES NEEDS AT THIS TIME.
--- NOTE | 2018-03-18 20:30 | NUR ---
ASSESSMENT COMPLETED. ALERT/ORIENTED. REPORTS 8/10 ABDOMINAL PAIN, PRN TYLENOL AND FENTANYL ADMINISTERED. LUNGS SOUND DIMINISHED THROUGHOUT, 4L O2 VIA NC IN PLACE, R.T. IN TO GIVE BREATHING TREATMENT AND INSTRUCT I.S. HR REGULAR. BOWEL TONES HYPOACTIVE, DENIES NAUSEA. ERNST PATENT. DR. LIND CALLED TO CHECK IN ON PT AND PUT IN ORDERS TO INCREASE IVF RATE TO 85ML/HR. PICC PATENT, NO REDNESS/SWELLING AT SITE. PERIPHERAL IV SITES SL, PATENT. SCD'S ON. EDEMA NOTED IN BLE. PT DENIES FURTHER REQUESTS AT THIS TIME, WILL CONTINUE TO CLOSELY MONITOR.
--- NOTE | 2018-03-18 21:55 | NUR ---
PT APPEARS TO BE SLEEPING AT THIS TIME, RR:25, HR:97
--- NOTE | 2018-03-18 22:08 | NUR ---
LEVOPHED DRIP ON AT THIS TIME AT 2MCG/MIN FOR BP: 97/48 (56). IVF CONTINUES TO INFUSE AT 85ML/HR. URINE OUTPUT 47ML THIS HOUR. PT CONTINUES TO SLEEP, DOES NOT APPEA TO BE IN ANY DISTRESS. WILL CONTINUE TO MONITOR CLOSELY.
--- NOTE | 2018-03-18 23:06 | NUR ---
LEVOPHED TITRATED TO 3MCG/MIN FOR MAP OF 61. URINE OUTOUT 15ML THIS HOUR. PT CONTINUES TO SLEEP, NO APPARENT DISTRESS. RR:22, SPO2: 98% ON 4L, HR:88. WILL ALLOW FOR REST AND CONTINUE TO MONITOR.
--- NOTE | 2018-03-19 00:09 | NUR ---
LEVOPHED TIRATED TO 2MCG/MIN FOR MAP OF 70. URINE OUTPUT WAS 13ML THIS HOUR. DR. LIND INFORMED OF PT'S LOW URINE OUTPUT AND UPDATED THAT PT IS BACK ON LEVOPHED. RECEIVED NEW ORDERS TO INCREASE IVF TO 125ML/HR AND THEN TITRATE LEVOPHED TO OFF TOLERATED. PT CONTINUES TO SLEEP, DOES NOT APPEAR TO BE IN ANY DISTRESS. RR:26, SPO2:99% ON 4L, HR:93. RESPIRATIONS ARE EVEN AND UNLABORED. WILL ALLOW FOR REST AND CONTINUE TO MONITOR.
--- NOTE | 2018-03-19 00:30 | NUR ---
LEVOPHED TITRATED TO 1MCG/MIN FOR MAP OF 69. IVF CONTINUES TO INFUSE AT 125ML/HR.
--- NOTE | 2018-03-19 01:00 | NUR ---
LEVOPHED OFF AT THIS TIME FOR MAP OF 83. URINE OUTPUT WAS 30ML FOR THE HOUR. PT REQUESTS TO GET UP, UP TO BSC WITH SBA, PT HAD SOFT, SEMI-LIQUID BM. RETURNED TO BED. SCD'S ON. IVF INFUSING WNL. HEAT PACK PROVIDED FOR NECK DISCOMFORT. PT DENIES NEED FOR PAIN MEDICATION AT THIS TIME. RESPIRATORY ASSESSMENT COMPLETED, LUNGS REMAIN DIM, CRACKLES NOTED IN BASES AND IN LEFT UPPER LOBE, 4L O2 REMAINS IN PLACE. CALL LIGHT IS WITHIN REACH, PT DENIES FURTHER REQUESTS.
--- NOTE | 2018-03-19 02:03 | NUR ---
LEVOPHED REMAINS OFF, MAP: 66. URINE OUTPUT 5ML THIS HOUR. PT REMAINS ASLEEP, NO APPARENT DISTRESS. WILL CONTINUE TO CLOSELY MONITOR.
--- NOTE | 2018-03-19 03:29 | NUR ---
AT 0300 LEVOPHED REMAINED OFF FOR MAP OF 69. NO URINE OUTPUT FOR THE HOUR, CALLED DR. LIND WHO ASKED THAT I PERFORM A BLADDER SCAN, NO OTHER ORDERS AT THIS TIME. BLADDER SCAN SHOWED 500ML, THOUGH I AM UNABLE TO TELL IF IT IS MEASURING ASCITIES OR BLADDER VOLUME. I FLUSHED ERNST WITH 10ML NORMAL SALINE AND THEN IT BEGAN TO DRAIN 30ML URINE (NOT INCLUDING 10ML FLUSH.) WILL CONTINUE TO MONITOR CLOSELY.
--- NOTE | 2018-03-19 04:05 | NUR ---
LEVOPHED REMAINS OFF, MAP:65. URINE OUTPUT 35ML FOR THE HOUR. ASSESSMENT COMPLETED. 25MCG IV FENTANYL ADMINISTERED FO 07/08 ABDOMINAL PAIN. 4L O2 VIA NC IN PLACE, LUNGS SOUND DIM, CRACKLES NOTED IN LEFT UPPER LOBE. NO OTHER CHANGES FROM PREVIOUS ASSESSMENTS. PT DENIES REQUESTS AT THIS TIME.
--- NOTE | 2018-03-19 05:03 | NUR ---
LEVOPHED REMAINS OFF, MAP: 68. URINE OUTPUT 12ML THIS HOUR. PT SLEEPING, RR:20, RESPIRATIONS EVEN AND UNLABORED. IVF INFUSING WNL. WILL CONTINUE TO MONITOR.
--- NOTE | 2018-03-19 06:00 | NUR ---
LEVOPHED REMAINS OFF, MAP: 80. URINE OUTPUT 40ML FOR THE HOUR. PT UP TO BSC, HAD ANOTHER SEMI-LIQUID SOFT BM. PT DENIES PAIN AT THIS TIME. CALL LIGHT WITHIN REACH. SCD'S ON.
--- NOTE | 2018-03-19 08:38 | NUR ---
PT AWAKE, VITAL SIGNS TAKEN. ASSESSMENT COMPLETED, PT STATES ABD DISCOMFORT "5/10". UP TO TORI CHAIR WITH ONE PERSON ASSIST, PT FARA WELL. STATES NOT BEING HUNGRY BUT DID ORDER SMALL AMT OF REG DIET FOR BREAKFAST. R.T. IN TO ASSESS PT, SATS 99% ON 4L PER NC. PT USED IS UP TO 750 MLS. HUMIDIFIED 02 DECREASED TO 3L PER NC. PT RESTING IN TORI CHAIR WITH LOWER EXTREMITIES ELEVATED.
--- NOTE | 2018-03-19 09:19 | NUR ---
PT NOT ABLE TO EAT MORE THAN A COUPLE BITES OF BREAKFAST. DR. LIND NOTIFIED OF DECREASE IN URINE OUTPUT AND IN TO ASSESS PT. IVF INCREASED TO 150 MLS/HR PER VERBAL ORDER. ENSURE GIVEN TO PT. DR. BABB IN TO TALK WITH PT ALSO. IN ROOM
--- NOTE | 2018-03-19 10:51 | NUR ---
PT UP TO BSC WITH ONE PERSON ASSIST AND HAD SMALL SOFT, NONFORMED BM. TRANSFERRED TO BED AND IS RESTING WITH HOB ELEVATED. PT DRANK APPROX 120 MLS ENSURE. C/O OF SLIGHT NAUSEA AND MEDICATED WITH ZOFRAN 4MG PO.
--- NOTE | 2018-03-19 12:23 | NUR ---
PT AWAKE, VITAL SIGNS TAKEN. PT C/O OF ABD DISCOMFORT "06/07". MEDICATED WITH FENTANYL 25 MCG IV. PT SITTING WITH HOB ELEVATED EATING SMALL AMT OF LUNCH AND ENSURE.
--- NOTE | 2018-03-19 15:00 | NUR ---
SPONGE BATH, ORAL CARE, CATH CARE, UP TO CHAIR. LINEN CHANGE. PT RESTING IN RECLINER, NO C/O AT THIS TIME.
--- NOTE | 2018-03-19 16:20 | NUR ---
VITAL SIGNS COMPLETED AND ASSESSMENT COMPLETED. TPN & LIPIDS STARTED PER DR. HODGE. PT RESTING IN OTRI CHAIR. PT STATES ABD PAIN REMAINS "7/10" BUT DENIES NEED FOR PAIN MED AT THIS TIME.
--- NOTE | 2018-03-19 16:51 | NUR ---
DR. LIND NOTIFIED OF DECREASE IN URINE OUTPUT, NEW ORDERS RECEIVED. PT AMBULATED IN HALLWAY A SHORT DISTANCE AND BACK TO ROOM. HR 122 WHILE AMBULATING. PT RETURNED TO BED AND RESTING WITH HOB ELEVATED, HR NOW 98.
--- NOTE | 2018-03-19 17:55 | NUR ---
PT EATING SMALL AMOUNT OF DINNER. NO C/O AT THIS TIME BUT STATES "NOTHING TASTES GOOD TO ME". PT RESTING IN BED WITH HOB ELEVATED.
--- NOTE | 2018-03-19 18:27 | NUR ---
DR. LIND NOTIFIED OF INCREASE WORK OF BREATHING. RESP 35 AND SHALLOW. ORDERS RECEIVED FOR CHEST XRAY. ALSO ORDER FOR CPAP - R.T. NOTIFIED.
--- NOTE | 2018-03-19 18:36 | NUR ---
PT UP TO BSC WITH ONE PERSON ASSIST - HAD SMALL SOFT BM AND RETURNED TO BED WITH ASSIST. CHEST XRAY COMPLETED.
--- NOTE | 2018-03-19 19:30 | NUR ---
PT SHIFT REPORT RECEIVED FROM DAY SHIFT RN. PT IS RESTING IN BED. PT CALLED AND ASKED FOR CPAP TO COME OFF AT 1900 PER REPORT. PT IS NOW ON 4L NC WITH RR 35-38. MD ORDERED A DOSE OF LASIX. WILL CONTINUE TO CLOSELY MONITOR.
--- NOTE | 2018-03-19 20:00 | NUR ---
PT SHIFT ASSESSMENT COMPLETED. PT IS RESTING IN BED. PT IS ALERT AND ORIENTED. BOWEL TONES ARE HYPOACTIVE. PT HAS HAD 2 BMS TODAY. BREATH SOUNDS ARE CLEAR AND DIMINISHED ON RIGHT AND CRACKLES THROUGHOUT THE L SIDE. RR 34-38. SPO2 98% ON 4L NC. LASIX ADMINISTERED PT URINE IS STARTING TO INCREASE AND DATA WAREHOUSE ADMINISTRATOR IN COLOR. PT RATES PAIN 8/10. WILL GIVE PRN PAIN MEDICATION AND MAKE WARM PACK PER PT REQUEST. UPDATED PT ON PLAN OF CARE FOR THE NIGHT. PT IS AGREEABLE TO PLAN TO TRY AND WEAR CPAP MACHINE AGAIN ABOUT 2100. WILL CONTINUE TO CLOSELY MONITOR.
--- NOTE | 2018-03-19 20:05 | NUR ---
PT SHIFT ASSESSMENT COMPLETED. PT IS RESTING IN BED. PT IS ALERT AND ORIENTED. BOWEL TONES ARE HYPOACTIVE. PT HAS HAD 2 BMS TODAY. BREATH SOUNDS ARE CLEAR AND DIMINISHED ON RIGHT AND CRACKLES THROUGHOUT THE L SIDE. RR 34-38. SPO2 98% ON 4L NC. LASIX ADMINISTERED PT URINE IS STARTING TO INCREASE AND EYEGLASS FRAMES POLISHER IN COLOR. PT RATES PAIN 8/10. WILL GIVE PRN PAIN MEDICATION AND MAKE WARM PACK PER PT REQUEST. UPDATED PT ON PLAN OF CARE FOR THE NIGHT. PT IS AGREEABLE TO PLAN TO TRY AND WEAR CPAP MACHINE AGAIN ABOUT 2100. WILL CONTINUE TO CLOSELY MONITOR.
--- NOTE | 2018-03-19 20:35 | NUR ---
PT REPOSITIONED FOR COMFORT. PT DENIES ANY OTHER NEEDS AT THIS TIME. CALL LIGHT IN HAND. WILL CONTINUE TO CLOSELY MONITOR.
--- NOTE | 2018-03-19 20:40 | NUR ---
PT REPOSITIONED FOR COMFORT. PT DENIES ANY OTHER NEEDS AT THIS TIME. CALL LIGHT IN HAND. WILL CONTINUE TO CLOSELY MONITOR.
--- NOTE | 2018-03-19 22:09 | NUR ---
CPAP REMOVED PER PT REQUEST. 4L O2 VIA NC PLACED ON PT. PT DENIES FURTHER REQUESTS AT THIS TIME.
--- NOTE | 2018-03-20 | NUR ---
PT CALLED TO HAVE CPAP PLACED BACK ON AT THIS TIME. CALLED RT TO ADJUST SETTINGS. WILL CONTINUE TO CLOSELY MONITOR.
--- NOTE | 2018-03-20 00:45 | NUR ---
PT CALLED TO HAVE CPAP ADJUSTED AGAIN. RT IN UNIT AND ADJUSTED SETTINGS. PT REQUESTING SOMETHING FOR PAIN. PT RATING PAIN 7/10. WILL CONTINUE TO CLOSELY MONITOR.
--- NOTE | 2018-03-20 01:51 | NUR ---
CPAP REMOVED PER PT REQUEST. 4L O2 VIA NC PLACED ON PT. NO FURTHER REQUESTS AT THIS TIME.
--- NOTE | 2018-03-20 04:00 | NUR ---
PT REQUESTING TO GO BACK ON CPAP. APPLIED MASK. PT STATES IT FITS GOOD. PT DENIES ANY OTHER NEEDS AT THIS TIME. WILL CONTINUE TO CLOSELY MONITOR.
--- NOTE | 2018-03-20 05:15 | NUR ---
PT CALLED TO HAVE CPAP REMOVED AND HAVE NASAL CANNULA REPLACED AT 4L O2. PT STATES "THAT MASK HURTS MY BELLY". WILL CONTINUE TO CLOSELY MONITOR.
--- NOTE | 2018-03-20 06:24 | NUR ---
ASSISTED PT UP TO BEDSIDE CAMMODE. PT HAD SMALL LOOSE BM. PT TOELRATED GETTING UP WELL AND DID NOT APPEAR SOB AND DENIED SOB. WILL CONTINUE TO CLOSELY MONITOR AT THIS TIME. CALL LIGHT IN HAND.
--- NOTE | 2018-03-20 08:03 | NUR ---
PT AWAKE, ASSISTED TO SITTING POSITION ON EDGE OF BED. PT FARA WELL, STATES "I CAN'T GIVE YOU A NUMBER FOR MY PAIN, I HAVE PAIN ALL THE TIME. THERE IS SO MUCH FLUID ON MY STOMACH". STATES MOST OF HER DISCOMFORT IS IN HER STOMACH. VITAL SIGNS AND ASSESSMENT COMPLETED.
--- NOTE | 2018-03-20 08:39 | NUR ---
PT ATE A FEW BITES OF BREAKFAST, APPROX 10%. STATES "THAT'S ALL I CAN EAT.". PT RETURNED TO BED WITH ONE PERSON ASSIST, HOB ELEVATED.
--- NOTE | 2018-03-20 08:54 | NUR ---
MEDICATED WITH FENTANYL 25 MCG FOR C/O ABD DISCOMFORT. PT RESTING IN BED WITH HOB ELEVATED.
--- NOTE | 2018-03-20 09:17 | NUR ---
DR. LIND IN TO ASSESS PT. PT SLEEPING BUT AWAKENS TO VOICE, RESP 31 AT THIS TIME.
--- NOTE | 2018-03-20 10:15 | NUR ---
DR. BABB IN TO ASSESS PT. ORAL PAIN MEDS ORDERED. PT UP TO BSC WITH ONE PERSON ASSIST, PT HAD SMALL SOFT- SEMI LIQ BROWN STOOL. PT TRANSFERRED TO TORI CHAIR AND RESTING IN RECLINED POSITION.
--- NOTE | 2018-03-20 10:47 | NUR ---
PT C/O OF ABD DISCOMFORT "06/07". MEDICATED WITH NORCO 5/325 PO X1. PT REMAINS UP IN CHAIR VISITING WITH HER .
--- NOTE | 2018-03-20 11:54 | NUR ---
PT NAUSEATED AFTER TAKING A FEW BITES OF HER SANDWICH. MEDICATED WITH ZOFRAN 4MG IV.
--- NOTE | 2018-03-20 13:12 | NUR ---
DR. LOWERY HERE AND CONSENT SIGNED FOR PARACENTISIS. 3 L DRAINED FROM RIGHT ABD AREA. PT FARA WELL. PT STATES FEELING BETTER AFTER PARACENTISIS COMPLETED.
--- NOTE | 2018-03-20 14:16 | NUR ---
I/O'S COMPLETED, PT SLEEPING WITH REU AT 22/MIN. ACCU CHECK 144, 1 UNIT INSULIN GIVEN SUB Q IN RIGHT UPPER ARM.
--- NOTE | 2018-03-20 14:46 | NUR ---
ALBUMIN [address] LOWERY ORDER.
--- NOTE | 2018-03-20 16:24 | NUR ---
ASSESSMENT COMPLETED, PT RESTING WITH EYES CLOSED BUT AWAKENS TO VOICE - FALLS ASLEEP QUICKLY.
--- NOTE | 2018-03-20 17:42 | NUR ---
PT SAT ON EDGE OF BED AND ATE APPROX 10% OF DINNER. TRANSFERRED TO TORI CHAIR WITH ON PERSON ASSIST. NO C/O AT THIS TIME.
--- NOTE | 2018-03-20 18:09 | NUR ---
PICC LINE DRESSING CHANGED USING PICC LINE DRESSING KIT. PT FARA WELL.
--- NOTE | 2018-03-20 19:10 | NUR ---
PT RETURNED TO BED PER REQUEST WITH ONE PERSON ASSIST. C/O ABD DISCOMFORT "06/07", MEDICATED WITH NORCO 2 PO.
--- NOTE | 2018-03-20 19:30 | NUR ---
PT SHIFT REPORT RECEIVED FROM DAY SHIFT RN. PT IS RESTING IN BED AT THIS TIME. RN JUST GAVE PRN PAIN MEDICATION. WILL CONTINUE TO CLOSELY MONITOR PT AND THIS TIME.
--- NOTE | 2018-03-20 20:00 | NUR ---
PT SHIFT ASSESSMENT COMPLETED. PT BREATH SOUNDS CLEAR ON RIGHT AND CRACKLES THROUGHOUT LEFT SIDE. RR 30-38. SPO2 98% ON 4L NC. PT DENIES SOB. PT STATES SHE FEELS BETTER TODAY AND SHE HAS LESS PAIN IN ABDOMEN. BOWEL TONES ARE HYPOACTIVE. PT STATES SHE HAS BEEN A BIT ANXIOUS, RESTLESS, AND FIDGITY THE LAST SEVERAL DAYS. PT DENIES ANY NEEDS AT THIS TIME. WILL CONTINUE TO CLOSELY MONITOR.
--- NOTE | 2018-03-20 20:05 | NUR ---
CALLED MD TO UPDATE THAT THE PATIENT DID NOT SLEEP MUCH LAST NIGHT WITH CURRENT SLEEP MEDICATION. PER MD INCREASE SONATA TO 10MG HS. ALSO UPDATED MD WILSON THAT THE PATIENT STATES SHE IS HAVING SOME ANXIETY AND RESTLESSNESS AT TIMES. PER IF SONATA DOES NOT HELP HER FALL ASLEEP AND ANXIETY CONTINUES MAY GIVE PRN ATIVAN 0.5 IV. WILL CONTINUE TO CLOSELY MONITOR.
--- NOTE | 2018-03-20 21:30 | NUR ---
PT IS TIERD NOW AND READY TO GO ON CPAP. PT COMPLAINING OF BREAK THROUGH PAIN. WILL GIVE PRN PAIN MEDICATION. PT ON CPAP, CALL LIGHT IN HAND. LIGHTS OFF, TV OFF, AND CURTAIN CLOSED TO ASSIST PT WITH SLEEPING. PT HAS NOT SLEPT WELL FOR SEVERAL NIGHTS. WILL ENCOURAGE REST AT THIS TIME.
--- NOTE | 2018-03-20 23:03 | NUR ---
PT CONTINUES TO REST AT THIS TIME AND REMAINS ON CPAP AND TOLERATING WELL. RR IS IMPROVED WITH CPAP RR 18 AT THIS TIME. SPO2 99%. WILL CONTINUE TO ENCOURAGE REST AND CLOSELY MONITOR.
--- NOTE | 2018-03-21 00:50 | NUR ---
PT WOKE AND REMOVED CPAP. PT IS READY TO WEAR NASAL CANUAL FOR AWHILE. PT AIME ANY ISSUES AT THIS TIME. READJUSTED IN BED. ASSESSMENT UNCHANGED FROM PREVIOUS ASESSMENT. WILL CONTINUE TO CLOSELY MONITOR.
--- NOTE | 2018-03-21 01:40 | NUR ---
BS AND MEDICATIONS ADMINISTERED. PT STATES PAIN IS TOLERABLE AT THIS TIME. WILL CONTINUE TO CLOSELY MONITOR. PT DENIES ANY OTHER NEEDS AT THIS TIME.
--- NOTE | 2018-03-21 01:45 | NUR ---
PT DENIES CPAP MASK AT THIS TIME AND WANTS TO STAY ON NASAL CANNULA. WILL CONTINUE TO MONITOR.
--- NOTE | 2018-03-21 02:18 | NUR ---
PT CALLED REPORTING 7/10 ABDOMINAL PAIN. OFFERED NORCO, BUT PT REQUESTS "THE FAST ACTING ONE". 25MCG IV FENTANYL GIVEN AT THIS TIME. PT DENIES FURTHE REQUESTS.
--- NOTE | 2018-03-21 03:30 | NUR ---
PT CALLED STATING SHE IS STILL HAVING PAIN. WILL GIVE PRN PAIN MEDICATION. PT RATING PAIN /10. REPOSITIONED PT AND GAVE HEAT PACK PER REQUEST. PT DENIES ANY OTHER NEEDS AT THIS TIME.
--- NOTE | 2018-03-21 06:15 | NUR ---
PT LABS COMPLETED. PT DENIES ANY NEEDS AT THIS TIME. ERNST EMPTIED. UPDATED PT THAT IV WOULD NEED CHANGED TODAY. WILL LOOK FOR IV ACCESS. PT HAS GENERALIZED EDEMA IN ARMS AND HANDS.
--- NOTE | 2018-03-21 07:39 | NUR ---
AT BEDSIDE AT THIS. CALORIE COUNT TO BE DONE ON PT, PER DR. WILSON. DECREASE IV FLUIDS AND INCREASE ORAL INTAKE.
--- NOTE | 2018-03-21 10:10 | NUR ---
PT UP TO BSC WITH ONE PERSON ASSIST, UNABLE TO HAVE BM AT THIS TIME. PT ASSISTED TO STANDING SCALE - 165.3 LBS, RETURNED TO TORI CHAIR RESTING IN A RECLINED POSTION.
--- NOTE | 2018-03-21 10:32 | NUR ---
BEDSIDE AT THIS TIME UPDATING PLAN OF CARE.
--- NOTE | 2018-03-21 13:00 | NUR ---
RC'D FROM LAB FOR CRITICAL VALUE OF 0.[address] WILSON NOTIFIED OF LAB VALUE, NO NEW ORDER AT THIS TIME.
--- NOTE | 2018-03-21 14:24 | NUR ---
PT SITTING QUIETLY IN CHAIR. SHE WELCOMED ME IN, AND MENTIONED THAT SHE IS FEELING SOMEWHAT MORE CONFIDENT. DRS FEEL SURGERY IS WARRANTED, AND SHE SEEMS RELIEVED TO AT LEAST IN HER ESTIMATION TO HAVE A DIRECTION. NO DATE FOR SURGERY YET. PT REQUESTED PRAYER, WILL FOLLOW NEEDED
--- NOTE | 2018-03-21 17:30 | NUR ---
BED BATH GIVEN AT THIS TIME.
--- NOTE | 2018-03-21 19:41 | NUR ---
TPN TURNED DOWN TO 42 ML/HR AT THIS TIME. TPN TO BE KEPT AT THIS RATE UNTIL MORNING. REPORT TO PURE CULTURE OPERATOR BY LUIS ANTONIO KELLER.
--- NOTE | 2018-03-21 20:00 | NUR ---
PT SHIFT REPORT RECEIVED FROM DAY SHIFT RN. ALL QUESTIONS ANSWERED. PT IS RESTING IN BED AT THIS TIME. PT IS AWARE OF PLAN TO BE TRANSFERED TO ANOTHER HOSPITAL TOMORROW FOR FURTHER CARDIAC AND CANCER RELATED TREATMENT. WILL CONTINUE TO CLOSELY MONITOR.
--- NOTE | 2018-03-21 20:30 | NUR ---
PT SHIFT ASSESSMENT COMPLETED. PT IS RESTING IN BED. PT ASKING ABOUT CURRENT SITUATION AND JERAMIE FOR TRANSFER TOMOORW. UPDATED PT AND SHE IS GOOD WITH THIS PLAN. PT BOWEL TONES HYPOACTIVE. ABD TENDER TO THE TOUCH. ABD IS DISTENED AT THIS TIME. BREATH SOUNDS ARE CLEAR ON RIGHT AND CRACKLES ON THROUGHOUT THE LEFT. PT DENIES ANY OTHER ISSUES AT THIS TIME. WILL CONTINUE TO CLOSELY MONITOR.
--- NOTE | 2018-03-21 20:30 | NUR ---
CALLED MD WILSON TO UPDATE REGUARDING LOW URINE OUTPUT DURING THE PREVIOUS 4 HOURS AND CURRENTLY ONLY HAS 10ML IN THE ERNST AT THE 2 HOUR ABDOULAYE. MD MAY ORDER LASIX. WILL MONITOR NEXT HOUR AND SEE IF IT IMPROVES. MD WANTS TPN TAPERED OFF OVER THE NIGHT AND TO HAVE IT TURNED OFF PRIOR TO TRANSFER TOMORROW. PHARMACY RECOMMENED CUTTING TPN IN HALF TO 40MLS/HR OVER NIGHT TO MAKE AN EASIER TRANSITION TO TURNING FLUIDS OFF TOMORROW. MD AWARE TPN IS NOW AT 40MLS/HR. WILL CONTINUE TO CLOSELY MONITOR.
--- NOTE | 2018-03-21 22:00 | NUR ---
URINE OUTPUT REMAINS LOW. GAVE IV LASIX PER MD. WILL CONTINUE TO CLOSELY MONITOR AT THIS TIME.
--- NOTE | 2018-03-22 | NUR ---
PT RESTING WELL. PT DOES NOT WANT CPAP ON AT THIS TIME. WILL TRY AGAIN LATER. URINARY OUTPUT HAS INCREASED. WILL CONTINUE TO CLOSELY MONITOR.
--- NOTE | 2018-03-22 02:45 | NUR ---
IN TO GIVE PT MEDICAITONS. PT STATES PAIN IS 8/10. WILL GIVE PRN PAIN MEDICATION. PT DENIES ANY OTHER NEEDS AT THIS TIME. WILL CONTINUE TO CLOSELY MONITOR.
--- NOTE | 2018-03-22 04:27 | NUR ---
PT LIPIDS ARE COMPLETE. PT IS RESTING AT THIS TIME. WILL ENCOURAGE PT TO REST AT THIS TIME. URINARY OUTPUT REMAINS ADEQUATE. PT CALLS APPROPRIATELY. WILL CONTINUE TO CLOSELY MONITOR.
--- NOTE | 2018-03-22 06:15 | NUR ---
LABS DRAWN FROM PICC LINE WITH NO ISSUES. SENT TO LAB. PT CALLED, HE WILL CALL BACK SHORTLY TO TALK WITH THE PT. PT DENIES ANY NEEDS AT THIS TIME. WILL CONTINUE TO CLOSELY MONITOR.
--- NOTE | 2018-03-22 07:05 | OR ---
[facility] [address] [place], [place] [address] Signed DATE OF OPERATION: 03/16/2018 SURGEON: Estefania Krishna MD FIXTURE DESIGNER: Sanjay Fletcher MD/Vijay Ziegler DO PREOPERATIVE DIAGNOSES: Recurrent cystocele, vault prolapse. POSTOPERATIVE DIAGNOSES: Recurrent cystocele, vault prolapse. PROCEDURES: [place] colpocleisis, cystoscopy. ANESTHESIA: Spinal with IV sedation. ESTIMATED BLOOD LOSS: 25 mL. DRAINS: Madison catheter. PACKS: None. INDICATIONS AND FINDINGS: The patient is a 77-year-old female, 2, para 2, who is status post distant hysterectomy with A and P repair and sling procedures, uterovaginal prolapse, who has developed a recurrent cystocele and vault prolapse. After discussion of her options, she wished to proceed with colpocleisis. At the time of surgery, she was noted to have significant vault prolapse with a cystocele. The perineum was well preserved. DESCRIPTION OF PROCEDURE: The patient was prepped and draped in the dorsal lithotomy position. The cuff was identified with Allis clamps and an incision was made, leaving a small remnant of vaginal tissue. This incision was transverse just above the cuff and then carried down laterally on each side up towards the bladder neck. The incision was then made Electronically Signed By: ESTEFANIA KRISHNA MD 03/22/18 0705 PATIENT NAME: SAQIB BHARDWAJ OPERATIVE REPORT DATE OF : 40 REPORT #: [id number] PHYSICIAN: ESTEFANIA KRISHNA MD PCP: LUIZA ORTEGA REPORT IS CONFIDENTIAL AND NOT TO BE RELEASED WITHOUT AUTHORIZATION [facility] [address] [place], [place] [address] Signed transversely at that point. This removed a rectangle of tissue from the anterior vaginal wall. The most proximal location of the angles was marked with 0 Vicryl sutures. Subsequent to this, the posterior vaginal wall was then excised in the same manner. The incision was carried down from side to side just below the cuff and then longitudinally down towards the hymenal ring and then again transversely. This also removed a rectangle of tissue from the posterior vagina. The vaginal tissue was superficially excised with sharp dissection using the Metzenbaum scissors both anteriorly and posteriorly. The proximal angles posteriorly were also marked with 0 Vicryl sutures. Subsequent to this, the upper portion of the vault was closed with interrupted sutures of 2-0 Vicryl and this was closed bringing each of the proximal portions together in a transverse manner. Following this, the tissue was closed along the longitudinal sides with interrupted sutures of the 2-0 Vicryl, taking care to bury each of the sutures as well and this was done from proximal to distal. This was done down both sides. At that point, there remained only the transverse closure near the hymen. This was closed with interrupted sutures of 2-0 Vicryl as well. This completely closed off the vault other than 2 narrow channels on each side. Following this, the perineorrhaphy was done. A triangle of tissue was removed from the perineal body and up into the lower labia. Cautery was used to control bleeding. Interrupted sutures of the 2-0 Vicryl were used to plicate the perineal body. The vaginal mucosa was closed with interrupted sutures of the 2-0 Vicryl as well. The perineum itself was closed with interrupted sutures placed in a subcuticular manner of the 2-0 Vicryl. Following this, good hemostasis was noted. The cystoscopy was then done. The Madison catheter was removed and the patient had received IV fluorescein. The cystoscope was placed and the bladder evaluated. The 70-degree scope was used. Clear urine was seen to freely egress from both of the ureters. There was no evidence of any damage to the bladder, though it was noted to be fairly trabeculated. Following this, the bladder was drained and the Madison catheter replaced. The patient was then taken to the recovery room in good condition. All sponge and needle counts were correct. Estefania Krishna MD PJW/MODL /[id number] cc: CARMEN Sultana Electronically Signed By: ESTEFANIA KRISHNA MD 03/22/18 0705 PATIENT NAME: SAQIB BHARDWAJ OPERATIVE REPORT DATE OF : 40 REPORT #: [id number] PHYSICIAN: ESTEFANIA KRISHNA MD PCP: LUIZA ORTEGA REPORT IS CONFIDENTIAL AND NOT TO BE RELEASED WITHOUT AUTHORIZATION [address] [address] Signed DO Sanjay Ernandez MD Copies: ABDIRASHID CHE JAMES D DO BRUNSMAN, MICHAEL JOHN MD ~ Electronically Signed By: ESTEFANIA KRISHNA MD 03/22/18 0705 PATIENT NAME: SAQIB BHARDWAJ OPERATIVE REPORT DATE OF : 40 REPORT #: [id number] PHYSICIAN: ESTEFANIA KRISHNA MD PCP: LUIZA ORTEGA REPORT IS CONFIDENTIAL AND NOT TO BE RELEASED WITHOUT AUTHORIZATION
--- NOTE | 2018-03-22 07:30 | NUR ---
BEDSIDE REPORT RECIEVED. PATIENT IS RESTFUL.
--- NOTE | 2018-03-22 07:35 | EKG ---
[facility] [address] [facility] [place] [address] Signed Sinus tachycardia with occasional premature ventricular complexes Nonspecific T wave abnormality Abnormal ECG When compared with ECG of 07-MAR-2018 15:21, premature ventricular complexes are now present T wave inversion now evident in Anterior leads Confirmed by CHERI WILSON MD ([id number]) on 03/22/2018 7:35:43 AM Electronically Signed By: CHERI WILSON MD 03/22/18 0735 PATIENT NAME: SAQIB BHARDWAJ Electrocardiogram DATE OF : 40 PHYSICIAN: CHERI WILSON MD REPORT #: [id number] REPORT IS CONFIDENTIAL AND NOT TO BE RELEASED WITHOUT AUTHORIZATION
--- NOTE | 2018-03-22 08:00 | NUR ---
ASSESSMENT DONE. C/O OF PAIN IN LOWER MID ABD. IVF TPN PATENT AT 40 ML/HR. TALKED WITH PATIENT ABOUT PLAN OF CARE FOR DAY, IS UNDERSTANDING.
--- NOTE | 2018-03-22 11:00 | NUR ---
PERCOCET ONE AND FENTANYL 25 MCG IV REPEATED FOR ABD PAIN. SPONGE BATH GIVEN. TOLERATED WELL. PATIENT WISHES TO REMAIN IN BED AT THIS TIME.
--- NOTE | 2018-03-22 11:56 | OR ---
[facility] [address] [place], [place] [address] Signed DATE OF OPERATION: 03/20/2018 SURGEON: Alisa Lowery MD PREOPERATIVE DIAGNOSIS: Probable malignant ascites, symptomatic. POSTOPERATIVE DIAGNOSIS: Probable malignant ascites, symptomatic. PROCEDURE: Right-sided paracentesis (2nd paracentesis in 48 hours), 3 L. ANESTHESIA: 1% lidocaine. INDICATION: This 77-year-old white woman is a patient Dr. Krishna and has undergone paracentesis by wv 48 hours ago, for symptomatic ascites. 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 Her cytology from paracentesis is pending, but her CA-125 is elevated. She has had increasing shortness of breath and symptoms and request is made by Dr. Krishna for repeat paracentesis. The risks of bleeding, infection, bowel injury, and other unforeseen complications were reviewed in detail. She understands and wished to proceed. FINDINGS: Similar clear yellow peritoneal fluid was withdrawn, 3 L in total were removed. The abdomen was markedly decompressed at this point. Albumin will be infused postoperatively. DESCRIPTION OF PROCEDURE: In a semi recumbent position in her bed in the intensive care unit, the right abdominal wall was prepared with Betadine solution and draped sterilely. A 1% lidocaine was injected locally. The peritoneal cavity was interrogated with a paracentesis needle. The obturator was removed and egress of clear yellow peritoneal fluid noted. It was attached to the 3-way stopcock device and 3 L were drained with the Accutane bottles. There were no complications. The needle was removed and a Band-Aid was applied. By this point, the abdomen was markedly decompressed. There was essentially no blood loss or complications that are known. Electronically Signed By: ALISA LOWERY MD 03/22/18 1156 PATIENT NAME: SAQIB BHARDWAJ OPERATIVE REPORT DATE OF : 40 REPORT #: [id number] PHYSICIAN: ALISA LOWERY MD PCP: LUIZA ORTEGA [facility] REPORT IS CONFIDENTIAL AND NOT TO BE RELEASED WITHOUT AUTHORIZATION [address] [address] Signed MD KRZYSZTOF Vera/MARICRUZ /[id number] cc: Raffaele Krishna MD Copies: RAFFAELE KRISHNA MD ~ Electronically Signed By: ALISA LOWERY MD 03/22/18 1156 PATIENT NAME: SAQIB BHARDWAJ OPERATIVE REPORT DATE OF : 40 REPORT #: [id number] PHYSICIAN: ALISA LOWERY MD PCP: LUIZA ORTEGA REPORT IS CONFIDENTIAL AND NOT TO BE RELEASED WITHOUT AUTHORIZATION
--- NOTE | 2018-03-22 11:56 | OR ---
[facility] [address] [place], [place] [address] Signed DATE OF OPERATION: 03/18/2018 SURGEON: Alisa Lowery MD PREOPERATIVE DIAGNOSIS: Symptomatic ascites. POSTOPERATIVE DIAGNOSIS: Symptomatic ascites. PROCEDURE: Right-sided abdominal paracentesis 4 L. ANESTHESIA: 1% lidocaine. INDICATION: A 77-year-old white woman, a patient of Dr. Krishna, who postoperatively on 03/16/2018 had significant hypotension and signs of possible sepsis. She developed ascites rather precipitously postoperatively. An exhaustive workup shows no evidence of bladder injury related to her gynecologic surgery (pelvic approach only for colpocleisis). Her CT scan does show significant ascites and she is symptomatic from and including difficulty in breathing to a degree and decreased appetite. There appears to be possible carcinomatosis based on omental caking and so forth. Consultation was undertaken with request of Dr. Krishna and a paracentesis is now offered for both therapeutic and diagnostic intention. The risks of bleeding, infection, bowel injury, and other unforeseen complications were reviewed with the patient. She understands and wished to proceed. FINDINGS: Straw-colored yellow ascites fluid was withdrawn. There was no sign of bloody ascites to suggest typical malignant ascites. A 4 L of fluid were taken off, although certainly 4 L or more could have been taken of. A 2 units of albumin will be infused. The specimen was sent for cytology and heparin 5000 units replaced in the vial for that purpose. DESCRIPTION OF PROCEDURE: In the supine position, the right abdomen was prepared with a chlorhexidine solution and draped sterilely. A 1% lidocaine was injected locally. In the right anterolateral Electronically Signed By: ALISA LOWERY MD 03/22/18 1156 PATIENT NAME: SAQIB BHARDWAJ OPERATIVE REPORT DATE OF : 40 REPORT #: [id number] PHYSICIAN: ALISA LOWERY MD PCP: LUIZA ORTEGA [facility] REPORT IS CONFIDENTIAL AND NOT TO BE RELEASED WITHOUT AUTHORIZATION [facility] [address] [facility] [place] [address] Signed abdominal wall below the level of the umbilicus, the peritoneal cavity was interrogated with the local anesthetic needle delivering clear type ascites. Using a paracentesis kit, an Angiocath was placed into the peritoneal cavity without problem and withdrawn and using the 3-way stopcock and Accutane bottles, 4 L of straw-colored clear ascites fluid was withdrawn. There was no sign of blood or problem with paracentesis nor any bloody ascites proper. She tolerated the procedure quite well without signs of hypotension or tachycardia. Although 4 L were withdrawn, a considerable amount of improvement to her abdominal cavity was noted far less distended and essentially scaphoid abdomen, although there was certainly more peritoneal fluid that could be withdrawn if necessary was noted. A vial of fluid was sent for cytologic examination. Dr. Krishna appeared at the latter time of the procedure, who affirmed her intention for fluid to be sent primarily only for cytology at this time. The catheter was removed without problem. A Band-Aid and OpSite was applied. MD KRZYSZTOF Vera/MARICRUZ /[id number] cc: MD Rell Chen MD Copies: RAFFAELE KRISHNA MD, RUSSEL J MD ~ Electronically Signed By: ALISA LOWERY MD 03/22/18 1156 PATIENT NAME: SAQIB BHARDWAJ OPERATIVE REPORT DATE OF : 40 REPORT #: [id number] PHYSICIAN: ALISA LOWERY MD PCP: LUIZA ORTEGA REPORT IS CONFIDENTIAL AND NOT TO BE RELEASED WITHOUT AUTHORIZATION
--- NOTE | 2018-03-22 12:07 | NUR ---
RESTFUL AFTER PAIN MEDICATION GIVEN AT 1100. REFUSING LUNCH. AWAITING TRANSFER TO [facility] IN [place].
--- NOTE | 2018-03-22 14:00 | NUR ---
D10 HUNG, TPN OFF. THIS DONE PER DR. WILSON ORDERS. pending transfer to [facility] in [place].
--- NOTE | 2018-03-22 14:25 | NUR ---
PERCOCET AND FENTANYL GIVEN FOR PAIN. REMAINS IN CHAIR.
--- NOTE | 2018-03-22 15:00 | NUR ---
ZOFRAN 4 MG IV GIVEN FOR NAUSEA.
--- NOTE | 2018-03-22 15:07 | NUR ---
ACCUCHECK-89. PATIENT IS SITTING IN CHAIR. AWAITING TRANSFER TO [facility]. [facility] PATENT. DR. BABB IS IN ROOM.
--- NOTE | 2018-03-22 15:35 | NUR ---
REPORT TO [facility]. TO [facility].
--- NOTE | 2018-03-22 16:35 | TS ---
[facility] [address] [place], [place] [address] Signed ADMISSION DATE: 03/16/2018 DISCHARGE DATE: DATE OF TRANSFER: 03/22/2018 The patient is a 77-year-old female, who was admitted on March 16 for a colpocleisis for vault prolapse. She previously had complaints of abdominal and pelvic pressure, though prior CT had been negative for any abnormalities. Her exam under anesthesia was unremarkable other than the vault prolapse. She underwent a colpocleisis under spinal anesthetic without difficulty. HYPOTENSION--postoperatively, she was significantly hypotensive in the recovery room which was probably multifactorial including her use of antihypertensives and spinal anesthetic. She also was presumed to be septic. Chest x-ray revealed a probable pneumonia. She did have an elevated white count. Lactate level was normal. At that point, she required support for her blood pressure. Initially, this was phenylephrine and then was switched to Levophed. She was begun on antibiotics including ceftriaxone and Zithromax for the pneumonia. Hospitalist consult was requested as well. She was able to be weaned off the Levophed over the next few days and was able to maintain a reasonable blood pressure. A PICC line was placed early in her hospital course. PNEUMONIA--she was initially treated with ceftriaxone and Zithromax. Her WBC continued to increase, however, and she was switched to Unisyn. She did not improve on the Unisyn and Zosyn was added to the Zithromax. Her WBC continued to decrease and her lung exam improved. She has completed her antibiotics for her pneumonia. Blood cultures and sputum cultures were negative. OLIGURIA--she had persistent oliguria postoperatively despite fluid challenges. Bladder scanning appeared to show a nondraining bladder despite the ruvalcaba catheter. Extensive evaluation was done and there was no evidence of any urinary tract injury, but she was found to be 3rd spacing with massive ascites. There was no obvious tumor mass other than probable omental involvement. Her oliguria continued despite her normalization of her blood pressure and she did receive IV Lasix on the for probable fluid overload. She diuresed well and has continued to have adequate UO since then. CARDIAC--during the course of the evaluation for the fluid overload, she underwent a cardiac echo and these results were reported out on Wednesday the , which showed hypokinesis of the anterior, anteroseptal, inferoseptal and inferior wall. She did have a slight elevation in her troponins to Electronically Signed By: RAFFAELE KRISHNA MD 03/22/18 1635 PATIENT NAME: SAQIB BHARDWAJ TRANSFER SUMMARY DATE OF : 40 REPORT #: [id number] PHYSICIAN: RAFFAELE KRISHNA MD PCP: LUIZA ORTEGA REPORT IS CONFIDENTIAL AND NOT TO BE RELEASED WITHOUT AUTHORIZATION [facility] [address] [place] [id number] Signed 0.063. Her EKG was repeated and there were inverted T-waves in the anterior leads. The patient never had any symptoms suggestive of cardiac ischemia with chest pain, etc. ASCITES--she did undergo therapeutic and diagnostic paracentesis on March 18. Approximately, 4 L of fluid were removed. 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 She reaccumulated fairly quickly over the weekend and another paracentesis was done on Wednesday, the with removal of 2.5 L. She did receive IV albumin with the procedures. The CT scan did not reveal any tumor mass but there did appear to be involvement of the omentum. Tumor markers were done and her CA 125 was >800 and her CA19 was >130. NUTRITION--she has had very poor po intake during her stay secondary to poor appetite. She does have GI continuity and has had multiple bowel movements. Stool softeners were stopped because of this. She was started on TPN because of her poor appetite though this is currently being weaned. DVT PROPHYLAXIS--she has been using SCDs and low dose subQ heparin for DVT prophylaxis. She is now being transferred for evaluation in the center with Precipitator/Oncology as well as the possibility of cardiac evaluation should this be needed. At this time, she is weaning off the TPN and is only on D10. She is completing her Zosyn for her antibiotics today. She does have a urinary catheter in place with adequate output. She is currently using po Percocet and IV fentanyl for pain control. She has had occasional nausea and has received Zofran as needed. Raffaele Krishna MD PJAndres/MODL /[id number] Copies: ~ Electronically Signed By: RAFFAELE KRISHNA MD 03/22/18 1635 PATIENT NAME: SAQIB BHARDWAJ TRANSFER SUMMARY DATE OF : 40 REPORT #: [id number] PHYSICIAN: RAFFAELE KRISHNA MD PCP: LUIZA ORTEGA [facility] REPORT IS CONFIDENTIAL AND NOT TO BE RELEASED WITHOUT AUTHORIZATION
[2018-04-08] MEDS ORDERED: COLACE100 MG PO (14:56)
[2018-04-08] MEDS ORDERED: ADULT ASPIRIN81 MG PO (14:56)
[2018-04-08] MEDS ORDERED: FUROSEMIDE40 MG PO (14:56)
[2018-04-08] MEDS ORDERED: LORAZEPAM0.5 MG PO (14:57)
[2018-04-08] MEDS ORDERED: METOPROLOL SUCC25 MG PO (14:58)
[2018-04-08] MEDS ORDERED: ZOFRAN ODT4 MG PO (14:58)
[2018-04-08] MEDS ORDERED: OXYCODONE HCL5 MG PO (14:59)
[2018-04-08] MEDS ORDERED: K-TAB ER20 MEQ PO (14:59)
[2018-04-08] MEDS ORDERED: PROCHLORPERAZINE5 MG PO (15:00)
[2018-04-08] MEDS ORDERED: TYLENOL325 MG PO (15:00)
[2018-05-04] MEDS ORDERED: MAGNESIUM500 MG PO (10:39)
== END 2018-03-22 15:35 | disposition short-term general hospital (02) | DRG 748 ==
LOC: CCU 03-16 05:40 → DSVR 03-16 05:40 → MS 03-16 06:45 → DSVR 03-16 08:24 → CCU 03-16 12:52
PROVIDERS: Internal Medicine; ADMIT Obstetrics & Gynecology
PROC: 02HV33Z Insertion of Infusion Device into Superior Vena Cava, Percutaneous Approach (ICD-10-PCS; 2018-03-16)
PROC: 0ULG7ZZ Occlusion of Vagina, Via Natural or Artificial Opening (ICD-10-PCS; principal; 2018-03-16 06:45)
PROC: 3E033XZ Introduction of Vasopressor into Peripheral Vein, Percutaneous Approach (ICD-10-PCS; 2018-03-16 06:45)
PROC: 0W9G3ZX Drainage of Peritoneal Cavity, Percutaneous Approach, Diagnostic (ICD-10-PCS; 2018-03-18)
PROC: 0W9G3ZZ Drainage of Peritoneal Cavity, Percutaneous Approach (ICD-10-PCS; 2018-03-18)
PROC: 0W9G3ZZ Drainage of Peritoneal Cavity, Percutaneous Approach (ICD-10-PCS; 2018-03-20)
DX: N99.3 Prolapse of vaginal vault after hysterectomy (principal); A41.9 Sepsis, unspecified organism; R65.21 Severe sepsis with septic shock; J69.0 Pneumonitis due to inhalation of food and vomit; J15.4 Pneumonia due to other streptococci; J81.0 Acute pulmonary edema; R18.0 Malignant ascites; E87.1 Hypo-osmolality and hyponatremia; I47.2 Ventricular tachycardia; E46 Unspecified protein-calorie malnutrition; C78.6 Secondary malignant neoplasm of retroperitoneum and peritoneum; I95.2 Hypotension due to drugs; T41.3X5A Adverse effect of local anesthetics, initial encounter; E87.6 Hypokalemia; E83.39 Other disorders of phosphorus metabolism; R34 Anuria and oliguria; I10 Essential (primary) hypertension; K21.9 Gastro-esophageal reflux disease without esophagitis; D64.9 Anemia, unspecified; R93.1 Abnormal findings on diagnostic imaging of heart and coronary circulation; Z79.899 Other long term (current) drug therapy; Z68.26 Body mass index [BMI] 26.0-26.9, adult; Z87.891 Personal history of nicotine dependence
CPT/HCPCS: 00910; 36415; 36430; 36569; 49082; 51700; 51702; 51798; 71045; 74018; 74176; 74177; 76775; 80048; 80053; 80061; 81001; 82306; 82607; 82728; 82746; 83540; 83605; 83735; 83880; 84100; 84134; 84466; 84484; 85025; 85610; 85730; 86301; 86304; 87040; 87088; 88305; 88312; 93005; 93010; 93306; 94640; 94660; C1751; J0295; J0456; J0690; J0696; J1100; J1644; J1885; J2250; J2274; J2370; J2405; J2543; J2704; J3010; J3475; J7030; J7040; J7050; J7120; P9047; Q9967

== ENCOUNTER 2019-12-27 14:45 | Observation (INO) | payer MEDICARE ==
[~2019-12-27] VITALS: Ht 160 cm; Wt 54.7 kg
[~2019-12-27 14:45] MED LIST: ADULT ASPIRIN81 MG PO; ADVIL200 MG PO; CALCI-CHEW500 MG PO; CARBOPLATIN150 MG IV; COLACE100 MG PO; DEXAMETHASONE4 MG PO; FUROSEMIDE20 MG PO; FUROSEMIDE40 MG PO; K-TAB ER20 MEQ PO; LISINOPRIL-HCT1 EACH PO; LORAZEPAM0.5 MG PO; LORAZEPAM1 MG PO; MAGIC MOUTHWASH; MAGNESIUM250 M1 PO; MAGNESIUM500 MG PO; MAGOX 400400 MG PO; METOPROLOL SUCC25 MG PO; MULTIVITAMINS1 EAC8 PO; MURO-12815 M1 OU; OMEPRAZOLE20 MG PO; ONDANSETRON HCL8 MG PO; OXYCODONE HCL5 MG PO; PACLITAXEL6 MG/1 ML; PERCOCET 5-3251 EACH PO; PRILOSEC OTC20 MG PO; PROCHLORPERAZINE5 MG PO; TYLENOL EXTRA500 MG PO; VIACTIV SOFT C1 EACH PO; VISION VITAMIN1 EACH PO; ZEJULA100 MG PO; ZOFRAN4 MG PO
--- OUTSIDE RECORDS SUMMARY | 2019-12-27 14:48 | XMS ---
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 [facility]Zhang VISIT COUNT (12 MO.) 1 Stephen Ghosh M[facility] 2 [facility] Rosales TOTAL 3 NOTE: Visits indicate total known visits. ED/UCC VISIT TRACKING (12 MO.) 12/27/2019 14:45 [facility] [place] TYPE: Emergency COMPLAINT: - WEAKNESS 08/28/2019 16:20 [facility] DIAGNOSES: - Thrombocytopenia, unspecified - ab labs sent by Dr Horner - Abnormal Lab 07/02/2019 08:50 [facility] [place] TYPE: Emergency COMPLAINT: - HERNIA REPAIR INPATIENT VISIT TRACKING (12 MO.) 07/02/2019 18:[address] 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 - Unil inguinal hernia, w obst, w/o gangr, not spcf as recur - 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
--- NOTE | 2019-12-27 17:33 | NUR ---
ED Nurse Jolie called me to come and offer comfort care to PT and her at approx 15:40. I arrived approx 30 min later. PT was being admitted to [facility] for comfort care. I was introduced after the PT and her were told that PT was going to move to comfort care. I talked with her who was about to leave to take care of some responsibilites at home. We asked if he had any questions about what the doctor shared and he said that he understood. He declined my praying for him and he did not have a back shoe operator for me to call. He shared with me about his and their relationship and asked me to sit with PT and pray with her. After he left I sat with the PT and checked in with her if she would indeed like me to pray for her which she did. I sat with PT for about an hour. When asked if she had anything she wanted to work through with me she seemed agitated. I asked her if that was so and she indicted yes. I let her know I didn't want to agitate her but wanted to help her and she smiled. I let her know what was going to happen next (move to [facility]) and that they would keep her comfortable. She knows who Greg Steele is and I let her know that he would stop in to see her tomorrow and I will send Greg a note to do so. She was not very coherent and was falling asleep. PT has a hard time communicating but did some. I let her know that I would be praying for her.
--- NOTE | 2019-12-27 18:24 | NUR ---
175: PT ARRIVED TO MED-SURG VIA A STRECHER FROM ER. PT DROWSY WITH PAIN NOTED WHEN WE MOVED HER TO THE BED FROM THE STRECHER. PT QUICKLY BACK TO SLEEP FOLLOWING THE TRANSFER. SEE EMAR. PT GIVEN A CALL [facility] AND INSTRUCTED IN IT'S USE PRIOR TO FALLING BACK TO SLEEP. WILL CONTINUE TO MONIOR. I ATTEMPTED TO DO AN ADMIT ASSESSMENT BUT THE PT IS HERE ALONE AND UNABLE TO ANSWER MOST QUESTIONS DUE TO PAIN/SLEEPING.
--- NOTE | 2019-12-27 18:36 | NUR ---
PT HAD A SMALL AMOUNT OF GREEN EMESIS TO MEASURE ABOUT 15 ML. PT WAS CLEANED UP AND TREATED FOR NAUSEA. HOB IS NOW ELEVATED.
--- NOTE | 2019-12-27 18:49 | NUR ---
Pt sleeping at this time, RR 28.
--- NOTE | 2019-12-27 19:15 | NUR ---
SHIFT REPORT RECEIVED FROM DAYSHIFT LUIS ANTONIO HERNANDEZ. PT RESTING IN BED, HOB ELEVATED FOR COMFORT. LUIS ANTONIO HERNANDEZ ADMINISTEREING 10MG PRN MORPHINE TO PT. PT NONVERBAL, BUT ABLE TO OPEN MOUTH FOR MEDICATION. CALL LIGHT IN REACH. NO DISTRESS OR AGITATION NOTED AT THIS TIME, PT APPEARS COMFORTABLE.
--- NOTE | 2019-12-27 19:55 | NUR ---
NEAR 194, THIS PEARL DIVER STOPPED IN TO SEE PT, PT COOL TO TOUCH, DENIED WANTING A BLANKET, DID NOT OPEN EYES, BUT DID NOD SLIGHTLY WHEN TOLD THAT HER HAD CALLED. DENIED NEED FOR PAIN MED at THAT TIME. ATTEMPTED TO CALL TO CHECK ON A HOME, IN THE EVENT IT IS NEEDED TONIGHT, NO ANSWER, NO MESSAGE. WHEN THIS PEARL DIVER TALKED TO AT 1935, ASKED IF THERE WAS OTHER FAMILY THAT COULD SUPPORT HIM HE GOT EMOTIONAL ON PHONE SAYING HOW MUCH HE LOVES HIS . HIS RESPONSE, IS THAT THEY ARE ALL "ASSHOLES", STATED THAT HE CAN'T DRIVE AT NIGHT, SO IF SHE WERE TO PASS, HE WOULD NOT BE ABLE TO COME IN. DID ENCOURAGE HIM TO CALL WHEN HE NEEDED TO, AND STAFF WILL KEEP HIM UPDATED WHEN NEEDED.
--- NOTE | 2019-12-27 20:12 | NUR ---
HEARD PT ROOM PHONE RINGING MULT TIMES. PT UNABLE TO TALK ON PHONE. WAS PT SON 'ANIKET". HE STATED THAT HER CALLED HIM. ASKED PT IS ANIKET WAS HER SON, SHE REPLIED YES. ASKED PT IF SHE COULD TALK SHE SAID NO. ASKED PT IF THIS OVERLOCKER COULD GIVE INFORMATION TO HER SON ANIKET, SHE REPLIED YES. SON WAS TOLD THAT PT WAS "COMFORT CARE", HE WAS UNAWARE OF WHAT THAT WAS. "END OF LIFE CARE, KEEPING PT COMFORTABLE". HE STATED HE WOULD CALL HIS BROTHER. PT AWARE OF CONVERSATION. SHE DENIED NEEDS, DESPITE THE COOLNESS IN THE ROOM, HER COLD HANDS, BUT SHE HAD PUSHED THE COVERS AWAY FROM HER CHEST.
--- NOTE | 2019-12-27 20:54 | NUR ---
IN ROOM TO ASSESS PT. 2LNC IN PLACE, HOB ELEVATED FOR COMFORT. RR 28, PT MOANING. WHEN ASKED IF PT WOULD LIKE PAIN MEDICATION, PT NODDED AND WHISPERED "YES". UNABLE TO RATE PAIN. 20MG PRN SL MORPHINE ADMINISTERED WITHOUT ISSUE. ASSESSMENT COMPLETE, PT DENIES NAUSEA WITH SHAKING OF HEAD. IV SITE WNL, FLUSHES EASILY. HOB LOWERED PER PT REQUEST FOR COMFORT, WARM BLANKET ALSO PROVIDED. CALL LIGHT IN REACH.
--- NOTE | 2019-12-27 21:05 | NUR ---
WALKED BY PT ROOM, PT DISTRESSED LOOKING, REQUESTED HOB LOWER, ALLOWED BLANKET TO BE PLACED OVER HER. STATED BETTER WHEN ASKED.
--- NOTE | 2019-12-27 21:50 | NUR ---
PT RESTING IN BED WITH EYES OPEN, NO DISTRESS NOTED. PT DENIES PAIN OR NEEDS AT THIS TIME, CALL LIGHT IN REACH.
--- NOTE | 2019-12-27 22:55 | NUR ---
PT RESTING IN BED WITH EYES OPEN. WHEN PT ASKED HOW SHE WAS DOING, PT STATES, "I'M HERE". PT NODS YES WHEN ASKED IF SHE'S COMFORTABLE, DENIES PAIN OR NEEDS. ERNST CATHETER EMPTIED, PT REPOSITIONED IN BED. CALL LIGHT IN REACH.
--- NOTE | 2019-12-27 22:57 | EKG ---
[facility] [address] [place] [address] Signed Sinus tachycardia Low voltage QRS Borderline ECG When compared with ECG of 02-JUL-2019 14:39, Vent. rate has increased BY 38 BPM QRS voltage has decreased Confirmed by KENZIE LIND MD ([id number]) on 12/27/2019 10:57:11 PM Electronically Signed By: KENZIE LIND MD 12/27/19 2257 PATIENT NAME: SAQIB BHARDWAJ Electrocardiogram DATE OF : 40 PHYSICIAN: KENZIE LIND MD REPORT #: [id number] REPORT IS CONFIDENTIAL AND NOT TO BE RELEASED WITHOUT AUTHORIZATION
--- NOTE | 2019-12-28 01:15 | NUR ---
PRN SL MORPHINE ADMINISTERED FOR PAIN, PT UNABLE TO RATE PAIN. NONVERBAL CUES RATE PAIN 6/10, OCCASSIONAL MOANING NOTED AT BEDSIDE. RR UPPER 20'S. WHEN ASKED IF PT FEELS SHE IS WORKING HARD TO BREATH, PT STATES. " A LITTLE". HOB ELEVATED FOR COMFORT, 3LNC REMAIN IN PLACE. NO DISTRESS NOTED. EXTREMITIES COLD TO THE TOUCH, SCANT BLUE TINGE NOTED TO BILATERAL FINGERTIPS, BILATERAL PEDAL PULSES WEAK. WARM BLANKETS PROVIDED. PRN ZOFRAN ALSO GIVEN FOR NAUSEA. IV SITE WNL, NO ADDITIONAL NEEDS. CALL LIGHT IN REACH.
--- NOTE | 2019-12-28 02:18 | NUR ---
PT RESTING IN BED, EYES PARTIALLY OPEN. RESPIRATIONS REMAIN SHALLOW AND TACHYPNEIC. NO SIGNS OF DISTRESS NOTED, PT APPEARS COMFORTALE AT THIS TIME. WILL MONITOR FOR CHANGES. CALL LIGHT IN REACH.
--- NOTE | 2019-12-28 02:45 | NUR ---
PROVIDED PT'S WITH UPDATE. ALL QUESTIONS ANSWERED.
--- NOTE | 2019-12-28 03:39 | NUR ---
PT IN BED, AWAKE. NO CHANGE IN RESPIRATORY STATUS, 3LNC REMAIN IN PLACE. MOANING NOTED FROM HALLWAY, PRN SL MORPHINE ADMINISTERED FOR PAIN. REPOSITIONED OFFERED TO PT, PT DECLINED AND SHOOK HEAD. NO FURTHER NEEDS, CALL LIGHT IN REACH.
--- NOTE | 2019-12-28 04:55 | NUR ---
IN ROOM TO ROUND ON PT, CHANGE IN RESPIRATORY STATUS NOTED. RESPIRATIONS SHALLOW AND AGONAL WITH OCCASSIONAL GRUNTING NOTED. DISCUSSED WITH OPERATIONS LIAISON JIMMIE, PARTIAL PRN PAIN MEDICATION GIVEN. UNABLE TO ADMINISTER FULL DOSE PT QUIT BREATHING. NO PULSE NOTED. DR LIND NOTIFIED BY OPERATIONS LIAISON. THREE ATTEMPTS MADE BY THIS RN TO CONTACT PT'S SPOUSE. WILL CONTINUE TRYING.
--- NOTE | 2019-12-28 05:01 | NUR ---
[facility] DAQUAN BASTING PULLER, NOTIFIED OF PATIENT .
--- NOTE | 2019-12-28 05:25 | NUR ---
PT SON ANIKET CALLED @ 0518 TO CHECK ON HIS MOM, HE WILL KEEP TRYING TO GET AH[employer] OF [place], KNOWING THAT RN HAS NOT BEEN ABLE TO REACH HIM, DESPITE MULT CALLS.
--- NOTE | 2019-12-28 05:26 | NUR ---
ATTEMPT MADE TO CONTACT PT'S , NO ANSWER AT THIS TIME.
--- NOTE | 2019-12-28 05:28 | NUR ---
DR. BROWN, LINE UP EXAMINER, NOTIFIED OF PATIENT . STATES SHE DOES NOT NEED TO COMPLETE AN EXAM AND WE CAN RELEASE BODY TO MORTUARY.
--- NOTE | 2019-12-28 06:11 | NUR ---
DAQUAN FROM PHOTO STUDIO ASSISTANT AT NURSE'S STATION, ATTEMPT MADE TO CONTACT PT'S . NO ANSWER AT THIS TIME.
--- NOTE | 2019-12-28 06:36 | NUR ---
Shellfish Dredge Operator call in at approx 5:00 for PT demise. When I arrived the staff had not been able to reach PT's . PT's son was reached and also tried to contact the PT's father. We tried to contact the again and were unsuccessful. I contacted the son and he was unsuccessful at contacting PT's as well. At approx. 6:30 I contacted the [facility] Police to go to PT's home and notify the of her demise.
--- NOTE | 2019-12-28 06:40 | NUR ---
PT'S ARRIVED TO THE FLOOR AND AT NURSE'S STATION. TALKING WITH THIS RN, ALMOND SORTER, AND DAQUAN FROM [facility]. MADE AWARE OF 'S AND REMINISCING OF .
--- NOTE | 2019-12-28 10:31 | NUR ---
CONTINUATION OF CARE FROM ELECTRONICS ENGINEERING TECHNOLOGIST POLYMER TESTERPETER BUTT. SHE HAD CALLED [facility] [facility] [facility], HAD LEFT. ARRIVED, AND RN DARRON ASSISTED WITH . GAVE PAPER WORK TO ZACK FROM , AND PLACED 'S P.QUILT ON . ESCORTED TO VEHICLE FOR TRANSPORT. WILL FOLLOW NEEDED
== END 2019-12-28 04:55 ==
LOC: ED 14:45 → MS 14:46
PROVIDERS: ADMIT Internal Medicine
DX: G89.3 Neoplasm related pain (acute) (chronic) (principal); C56.9 Malignant neoplasm of unspecified ovary; C79.9 Secondary malignant neoplasm of unspecified site; K21.9 Gastro-esophageal reflux disease without esophagitis; Z51.5 Encounter for palliative care; Z66 Do not resuscitate; R18.8 Other ascites; Z79.1 Long term (current) use of non-steroidal anti-inflammatories (NSAID); Z79.82 Long term (current) use of aspirin; Z79.899 Other long term (current) drug therapy
CPT/HCPCS: 51702; 93005; 93010; 96376; 99284-25; G0378; J1170; J2405; J2550